=== PATIENT | male | born 1950 | race Hispanic/Latino ===

== ENCOUNTER 2017-10-02 09:50 | Emergency (ER) | payer OTHER ==
--- NOTE | 2017-10-02 10:01 | ER ---
Nurse's Notes [facility] Name: Santiago Odonnell Age: 67 yrs Sex: Male : 1950 Arrival Date: 10/02/2017 Time: 09:56 Bed Waiting Private MD: Diagnosis: Presentation: 10/02 09:59 Presenting complaint: pt thought this was a free clinic, refuses to be seen by iw provider, does not want to have an ER bill. ED Course: :56 Patient arrived in ED. mr Administered Medications: No medications were administered Outcome: 10:00 Patient left the ED. iw Signatures: Chelsi Christiansen Irene, RN RN iw
== END 2017-10-02 10:00 | disposition left against medical advice (07) ==
LOC: ER 09:50
DX: Z53.21 Procedure and treatment not carried out due to patient leaving prior to being seen by health care provider
CPT/HCPCS: 99281

== ENCOUNTER 2018-06-09 03:13 | Emergency (ER) | payer OTHER ==
[2018-06-09] MEDS ORDERED: LIDOCAINE JELLY 2%- 5 ML TUBE ONE (03:45)
[2018-06-09] MEDS ORDERED: LIDOCAINE VISCOUS 2% SOLN 15 ML UDC ONE (03:47)
--- NOTE | 2018-06-09 04:59 | ER ---
Nurse's Notes [facility] Name: Santiago Odonnell Age: 67 yrs Sex: Male : 1950 Arrival Date: 06/09/2018 Time: 03:17 Bed 5 Private MD: Diagnosis: Retention of urine, unspecified Presentation: 06/09 03:28 Presenting complaint: Patient states: he has not urinated since 1400 today. pt was in [address] for [place] 06/01/18 with heart stint placed. Transition of care: patient was not received from another setting of care. Onset of symptoms was June 09, 2018. Risk Assessment: Do you want to hurt yourself or someone else? Patient reports no desire to harm self or others. Initial Sepsis Screen: Does the patient meet any 2 criteria? No. Patient's initial sepsis screen is negative. Does the patient have a suspected source of infection? No. Patient's initial sepsis screen is negative. Care prior to arrival: None. 03:28 Method Of Arrival: Ambulatory [facility] 03:28 Acuity: WALTER 3 [facility] Triage Assessment: 03:31 General: Appears in no apparent distress. Behavior is calm, cooperative. Pain: [facility] Complains of pain in pelvis. EENT: No signs and/or symptoms were reported regarding the EENT system. Neuro: No deficits noted. Cardiovascular: No deficits noted. Respiratory: No deficits noted. GI: No signs and/or symptoms were reported involving the gastrointestinal system. : No signs and/or symptoms were reported regarding the genitourinary system. Derm: No signs and/or symptoms reported regarding the dermatologic system. Musculoskeletal: No signs and/or symptoms reported regarding the musculoskeletal system. Historical: - Allergies: 03:31 No Known Allergies; ak1 - Home Meds: 03:31 None [Active]; ak1 - PMHx: 03:31 [place]; ak1 - PSHx: 03:31 Heart stents; ak1 - Immunization history:: Adult Immunizations unknown. - Social history:: Smoking status: Patient/guardian denies using tobacco. - Ebola Screening: : No symptoms or risks identified at this time. - Family history:: not pertinent. - Hospitalizations: : No recent hospitalization is reported. Screenin:33 Abuse screen: Denies threats or abuse. Denies injuries from another. Nutritional ak1 screening: No deficits noted. Tuberculosis screening: No symptoms or risk factors identified. Fall Risk None identified. Assessment: 03:45 Reassessment: bladder scan done 371ml. rr5 03:50 General: Appears in no apparent distress. distressed, Behavior is calm, cooperative, rr5 appropriate for age. Pain: Complains of pain in pelvis Pain does not radiate. Pain currently is 5 out of 10 on a pain scale. Quality of pain is described as aching, Pain began gradually, Is intermittent. 03:50 Neuro: Level of Consciousness is awake, alert, obeys commands, Oriented to person, rr5 place, time, situation. Cardiovascular: Capillary refill < 3 seconds Patient's skin is warm and dry. Respiratory: Airway is patent Respiratory effort is even, unlabored, Respiratory pattern is regular, symmetrical. GI: Abdomen is round. : Reports cramping, incontinence, inability to void, pain in suprapubic area. EENT: No signs and/or symptoms were reported regarding the EENT system. Derm: Skin is intact, Skin is dry, Skin is pink, warm \T\ dry. Bruising that is dark purple, on right inner thigh. Musculoskeletal: No signs and/or symptoms reported regarding the musculoskeletal system. 03:52 Reassessment: meraz catheter insertion done aseptically with urine return. blood tinged rr5 noted then went yellow clear. 04:38 Reassessment: Patient appears in no apparent distress at this time. Patient and/or rr5 family updated on plan of care and expected duration. Pain level reassessed. no complaints made Patient states feeling better. Patient states symptoms have improved. 05:23 Reassessment: Patient appears in no apparent distress at this time. ED physician rr5 instructed to go home with meraz catheter in place discharge instruction, follow up to dr. hernández and meraz catheter care taught the patient. Patient states feeling better. Patient states symptoms have improved. Vital Signs: 03:31 BP 135 / 76; Pulse 89; Resp 18; Temp 98.8(O); Pulse Ox 100% on R/A; Weight 68.04 kg ak1 (R); Height 5 ft. 3 in. (160.02 cm); Pain 3/10; 04:33 BP 120 / 77; Pulse 89; Resp 17; Pulse Ox 98% on R/A; rr5 05:15 BP 113 / 70; Pulse 85; Resp 17; Pulse Ox 98% on R/A; rr5 03:31 Body Mass Index 26.57 (68.04 kg, 160.02 cm) ak1 ED Course: 03:17 Patient arrived in ED. es 03:24 Angel Colin MD is Attending Physician. rn 03:28 Milena Cedeño, RN is Primary Nurse. ak1 03:30 Triage completed. ak1 03:31 Arm band placed on Patient placed in an exam room, on a stretcher, Patient notified of ak1 wait time. 03:33 Patient has correct armband on for positive identification. Bed in low position. Call ak1 light in reach. Side rails up X 1. Pulse ox on. NIBP on. 03:52 Meraz cath inserted, using sterile technique, 16 Fr., by ia, balloon inflated, to rr5 gravity drainage, returned clear yellow urine. Patient tolerated well. 04:58 Gaurav Hernández MD is Referral Physician. rn 05:15 No provider procedures requiring assistance completed. IV discontinued. rr5 Administered Medications: No medications were administered Output: 05:15 Urine: 300ml (Meraz); Total: 300ml. rr5 Outcome: 04:58 Discharge ordered by . rn 05:15 Discharged to home ambulatory, with family. rr5 05:15 Condition: stable 05:15 Discharge instructions given to patient, family, Instructed on discharge instructions, follow up and referral plans. medication usage, Demonstrated understanding of instructions, follow-up care, medications. 05:28 Patient left the ED. rr5 Signatures: Tina Paniagua Roman, MD MD rn Krenek, Amber, RN RN ak1 Froilan Guzman RN RN rr5
--- NOTE | 2018-06-09 05:00 | EDPHYS ---
Physician Documentation [facility] Name: Santiago Odonnell Age: 67 yrs Sex: Male : 1950 Arrival Date: 06/09/2018 Time: 03:17 Bed 5 Private MD: ED Physician Angel Colin HPI: 06/09 04:52 This 67 yrs old Male presents to ER via Ambulatory with complaints of Urinary rn Retention. 04:52 The patient presents with urinary symptoms, retention. Onset: The symptoms/episode rn began/occurred today. Modifying factors: The symptoms are alleviated by nothing, the symptoms are aggravated by nothing. Severity of symptoms: At their worst the symptoms were mild, in the emergency department the symptoms are unchanged. The patient has not experienced similar symptoms in the past. Reports just discharged yesterday from hospital in [place], had heart attack, had meraz catheter placed, reports was traumatic and had some blood and trouble peeing then, but was able to urinate yesterday so meraz pulled out, traveled today, and reports unable to urinate for hours. No chest pain/sob/vomiting/diarrhea. No known prostate problems. . Historical: - Allergies: 03:31 No Known Allergies; ak1 - Home Meds: 03:31 None [Active]; ak1 - PMHx: 03:31 [place]; ak1 - PSHx: 03:31 Heart stents; ak1 - Immunization history:: Adult Immunizations unknown. - Social history:: Smoking status: Patient/guardian denies using tobacco. - Ebola Screening: : No symptoms or risks identified at this time. - Family history:: not pertinent. - Hospitalizations: : No recent hospitalization is reported. ROS: 04:52 Constitutional: Negative for fever, chills, and weight loss, Eyes: Negative for injury, rn pain, redness, and discharge, Neck: Negative for injury, pain, and swelling, Cardiovascular: Negative for chest pain, palpitations, and edema, Respiratory: Negative for shortness of breath, cough, wheezing, and pleuritic chest pain, Abdomen/GI: + lower abd pain : Negative for injury, bleeding, discharge, and swelling, MS/Extremity: Negative for injury and deformity, Skin: Negative for injury, rash, and discoloration, Neuro: Negative for headache, weakness, numbness, tingling, and seizure. Exam: 04:52 Constitutional: This is a well developed, well nourished patient who is awake, alert, rn and in no acute distress. Head/Face: Normocephalic, atraumatic. Eyes: Pupils equal round and reactive to light, extra-ocular motions intact. ENT: MMM Neck: Trachea midline, no thyromegaly or masses palpated, and no cervical lymphadenopathy. Supple, full range of motion without nuchal rigidity, or vertebral point tenderness. No Meningismus. Abdomen/GI: soft, non-tender MS/ Extremity: Pulses equal, no cyanosis. Neurovascular intact. Full, normal range of motion. Equal circumference. Neuro: Awake and alert, GCS 15, oriented to person, place, time, and situation. Cranial nerves II-XII grossly intact. Motor strength 5/5 in all extremities. Sensory grossly intact. Cerebellar exam normal. Normal gait. Vital Signs: 03:31 BP 135 / 76; Pulse 89; Resp 18; Temp 98.8(O); Pulse Ox 100% on R/A; Weight 68.04 kg ak1 (R); Height 5 ft. 3 in. (160.02 cm); Pain 3/10; 04:33 BP 120 / 77; Pulse 89; Resp 17; Pulse Ox 98% on R/A; rr5 05:15 BP 113 / 70; Pulse 85; Resp 17; Pulse Ox 98% on R/A; rr5 03:31 Body Mass Index 26.57 (68.04 kg, 160.02 cm) ak1 MDM: 03:24 Patient medically screened. rn 04:52 Differential diagnosis: urinary retention. Data reviewed: vital signs, nurses notes, rn and as a result, I will discharge patient. Counseling: I had a detailed discussion with the patient and/or guardian regarding: the historical points, exam findings, and any diagnostic results supporting the discharge/admit diagnosis, the need for outpatient follow up, to return to the emergency department if symptoms worsen or persist or if there are any questions or concerns that arise at home. Special discussion: I discussed with the patient/guardian in detail that at this point there is no indication for admission to the hospital. It is understood, however, that if the symptoms persist or worsen the patient needs to return immediately for re-evaluation. Based on the history and exam findings, there is no indication for further emergent testing or inpatient evaluation. I discussed with the patient/guardian the need to see the urologist for further evaluation of the symptoms. 04:59 ED course: MOst likely stricture from recent catheterization. . rn 06/09 03:40 Order name: Bladder Scanner; Complete Time: 03:52 rn 06/09 03:40 Order name: Meraz; Complete Time: 03:52 rn Administered Medications: No medications were administered Disposition: 06/09/18 04:58 Discharged to Home. Impression: Retention of urine, unspecified. - Condition is Stable. - Discharge Instructions: Meraz Catheter Care, Adult, Acute Urinary Retention, Male. - Medication Reconciliation Form, Thank You Letter, Antibiotic Education, Prescription Opioid Use form. - Follow up: Gaurav Hernández MD; When: 5 - 6 days; Reason: Recheck today's complaints, Re-evaluation by your physician. - Problem is new. - Symptoms have improved. Signatures: Angel Colin MD MD rn Krenek, Amber RN RN ak1 Froilan Guzman RN RN rr5 Corrections: (The following items were deleted from the chart) 05:28 04:58 06/09/2018 04:58 Discharged to Home. Impression: Retention of urine, unspecified. rr5 Condition is Stable. Forms are Medication Reconciliation Form, Thank You Letter, Antibiotic Education, Prescription Opioid Use. Follow up: Gaurav Hernández; When: 5 - 6 days; Reason: Recheck today's complaints, Re-evaluation by your physician. Problem is new. Symptoms have improved. rn
[2018-06-09 05:33] VITALS: TEMP 98.8
[2018-06-09 05:34] VITALS: O2SAT 98
[2018-06-09 05:36] VITALS: BP 113/70
== END 2018-06-09 05:28 | disposition home or self-care (01) ==
LOC: ER 03:13
DX: R33.9 Retention of urine, unspecified (principal); I25.2 Old myocardial infarction; Z95.5 Presence of coronary angioplasty implant and graft
CPT/HCPCS: 51702; 99284

== ENCOUNTER 2019-08-01 09:34 | Emergency (ER) | payer OTHER ==
[2019-08-01 10:03] LABS: Absolute Lymphocytes (CBC) 2.5 K/uL (0.7-4.9); Basophils % 0.8 % (0-1.3); Hematocrit 42.5 % (39.6-49.0); Lymphocytes % 31.8 % (15.3-44.8); MPV 8.3 fL (7.6-11.3); RBC Red Blood Cell Count 4.51 M/uL (4.33-5.43)
[2019-08-01 10:08] LABS: Protime INR 0.98
[2019-08-01 10:35] LABS: ALT/SGPT 44 U/L (12-78); AST/SGOT 25 U/L (15-37); Albumin 3.6 g/dL (3.4-5.0); Alkaline Phosphatase 58 U/L (45-117); BUN Blood Urea Nitrogen 15 mg/dL (7-18); Bicarbonate 26 mmol/L (21-32); Bilirubin Direct 0.1 mg/dL (0-0.2); Bilirubin Total 0.3 mg/dL (0.2-1.0); Glucose Level 89 mg/dL (74-106); Magnesium 2.3 mg/dL (1.8-2.4); NT PRO-BNP 488 pg/mL (<125); Potassium 3.8 mmol/L (3.5-5.1); Protein, Total 7.3 g/dL (6.4-8.2); Sodium Level 140 mmol/L (136-145); Troponin (Emerg Dept Use Only) < 0.02 ng/mL (0.0-0.045)
--- NOTE | 2019-08-01 10:49 | RAD REPORT ---
EXAM DESCRIPTION: RAD - Chest Single View - 08/01/2019 10:39 am CLINICAL HISTORY: Chest pain;Palpitations Chest pain. COMPARISON: CHEST SINGLE VIEW dated 02/18/2015 FINDINGS: Portable technique limits examination quality. The lungs are grossly clear. The heart is normal in size. No displaced fractures. IMPRESSION: No acute intrathoracic process suspected.
--- NOTE | 2019-08-01 13:10 | EDPHYS ---
Physician Documentation [facility] Name: Santiago Odonnell Age: 69 yrs Sex: Male : 1950 Arrival Date: 08/01/2019 Time: 09:34 Bed 4 Private MD: Omar Jain ED Physician Jass Haynes HPI: 08/01 10:37 This 69 yrs old Male presents to ER via Ambulatory with complaints of Chest kdr Pain, Palpitations. 10:37 The patient or guardian reports chest pain that is located primarily in the anterior kdr chest wall, left. Onset: yesterday. The pain does not radiate. Associated signs and symptoms: The patient has no apparent associated signs or symptoms. The chest pain is described as sharp, pulsing. Duration: The patient or guardian reports multiple episodes, that are intermittent, that wax and wane, with no pattern. Modifying factors: The symptoms are alleviated by nothing. the symptoms are aggravated by nothing. Severity of pain: At its worst the pain was. The patient has experienced similar episodes in the past, a few times, The patient had a heart cath in [place] last year - he does not know the results. Historical: - Allergies: 09:44 No Known Drug Allergies; hb - PMHx: 09:44 [place]; hb - PSHx: 09:44 Heart stents; hb - Immunization history:: Adult Immunizations up to date. - Social history:: Smoking status: Patient denies any tobacco usage or history of. - Ebola Screening: : No symptoms or risks identified at this time. ROS: 10:37 Constitutional: Negative for fever, chills, and weight loss, Eyes: Negative for injury, kdr pain, redness, and discharge, ENT: Negative for injury, pain, and discharge, Neck: Negative for injury, pain, and swelling, Respiratory: Negative for shortness of breath, cough, wheezing, and pleuritic chest pain, Abdomen/GI: Negative for abdominal pain, nausea, vomiting, diarrhea, and constipation, Back: Negative for injury and pain, : Negative for injury, bleeding, discharge, and swelling, MS/Extremity: Negative for injury and deformity, Skin: Negative for injury, rash, and discoloration, Neuro: Negative for headache, weakness, numbness, tingling, and seizure activity. Psych: Negative for depression, anxiety, suicide ideation, homicidal ideation, and hallucinations, Allergy/Immunology: Negative for hives, rash, and allergies, Endocrine: Negative for neck swelling, polydipsia, polyuria, polyphagia, and marked weight changes, Hematologic/Lymphatic: Negative for swollen nodes, abnormal bleeding, and unusual bruising. 10:37 Cardiovascular: Positive for chest pain, of the anterior aspect of left upper chest, kdr Negative for edema, orthopnea, palpitations, paroxysmal nocturnal dyspnea. Exam: 10:37 Constitutional: This is a well developed, well nourished patient who is awake, alert, kdr and in no acute distress. Head/Face: Normocephalic, atraumatic. Eyes: Pupils equal round and reactive to light, extra-ocular motions intact. Lids and lashes normal. Conjunctiva and sclera are non-icteric and not injected. Cornea within normal limits. Periorbital areas with no swelling, redness, or edema. Neck: Trachea midline, no thyromegaly or masses palpated, and no cervical lymphadenopathy. Supple, full range of motion without nuchal rigidity, or vertebral point tenderness. No Meningismus. Chest/axilla: Normal chest wall appearance and motion. Nontender with no deformity. No lesions are appreciated. Cardiovascular: Regular rate and rhythm with a normal S1 and S2. No gallops, murmurs, or rubs. Normal PMI, no JVD. No pulse deficits. Respiratory: Lungs have equal breath sounds bilaterally, clear to auscultation and percussion. No rales, rhonchi or wheezes noted. No increased work of breathing, no retractions or nasal flaring. Abdomen/GI: Soft, non-tender, with normal bowel sounds. No distension or tympany. No guarding or rebound. No evidence of tenderness throughout. Back: No spinal tenderness. No costovertebral tenderness. Full range of motion. Skin: Warm, dry with normal turgor. Normal color with no rashes, no lesions, and no evidence of cellulitis. MS/ Extremity: Pulses equal, no cyanosis. Neurovascular intact. Full, normal range of motion. Neuro: Awake and alert, GCS 15, oriented to person, place, time, and situation. Cranial nerves II-XII grossly intact. Motor strength 5/5 in all extremities. Sensory grossly intact. Cerebellar exam normal. Normal gait. Psych: Awake, alert, with orientation to person, place and time. Behavior, mood, and affect are within normal limits. 10:49 ECG was reviewed by the Attending Physician. kdr Vital Signs: 09:44 BP 138 / 73; Pulse 83; Resp 17; Temp 98.3; Pulse Ox 100% on R/A; Weight 65.77 kg; hb Height 5 ft. 6 in. (167.64 cm); Pain 5/10; 10:43 BP 114 / 64; Pulse 56; Resp 13; Pulse Ox 100% ; bp 11:58 BP 123 / 62; Pulse 61; Resp 17; Pulse Ox 100% ; bp 09:44 Body Mass Index 23.40 (65.77 kg, 167.64 cm) hb MDM: 13:09 Patient medically screened. kdr 14:30 Data reviewed: vital signs, nurses notes, radiologic studies. kdr 08/01 09:42 Order name: Basic Metabolic Panel; Complete Time: 11:03 [facility] 08/01 09:42 Order name: CBC with Diff; Complete Time: 10:33 kdr 08/01 09:42 Order name: LFT's; Complete Time: 11:03 [facility] 08/01 09:42 Order name: Magnesium; Complete Time: 11:03 kdr 08/01 09:42 Order name: NT PRO-BNP; Complete Time: 11:03 [facility] 08/01 09:42 Order name: PT-INR; Complete Time: 10:33 kdr 08/01 09:42 Order name: Troponin (emerg Dept Use Only); Complete Time: 11:03 [facility] 08/01 09:42 Order name: XRAY Chest (1 view); Complete Time: 11:03 [facility] 08/01 09:42 Order name: EKG; Complete Time: 09:44 kdr 08/01 09:42 Order name: Cardiac monitoring; Complete Time: 09:44 kdr 08/01 09:42 Order name: EKG - Nurse/Tech; Complete Time: 09:53 kdr 08/01 09:42 Order name: IV Saline Lock; Complete Time: :53 [facility] 08/01 11:05 Order name: Troponin (emerg Dept Use Only): Draw 2 hours after initial draw; Complete kdr Time: 13:08/01 09:42 Order name: Labs collected and sent; Complete Time: 09:54 kdr 08/01 09:42 Order name: O2 Per Protocol; Complete Time: 09:44 kdr 08/01 09:42 Order name: O2 Sat Monitoring; Complete Time: kdr EC:49 Rate is 60 beats/min. Rhythm is regular, Normal Sinus Rhythm with No ectopy. QRS [place] kdr is Normal. [place] interval is normal. Clinical impression: Normal ECG and NSR w/ Non-specific ST/T Changes. Administered Medications: No medications were administered Disposition: 08/01/19 13:09 Discharged to Home. Impression: Chest pain, unspecified. - Condition is Stable. - Discharge Instructions: Nonspecific Chest Pain, [id number]. - Medication Reconciliation Form, Thank You Letter form. - Follow up: Omar Jain MD; When: 2 - 3 days; Reason: If symptoms return, Further diagnostic work-up, Recheck today's complaints, Continuance of care, Re-evaluation by your physician. - Problem is an acute exacerbation. - Symptoms are resolved. Signatures: Dispatcher [employer] [facility] Jass Haynes MD MD kdr Berta Cottrell RN RN hb Corrections: (The following items were deleted from the chart) 10:02 09:59 Transvaginal Ob+US.RAD.BRZ ordered. [facility] 13:20 13:09 08/01/2019 13:09 Discharged to Home. Impression: Chest pain, unspecified. hb Condition is Stable. Forms are Medication Reconciliation Form, Thank You Letter, Antibiotic Education, Prescription Opioid Use. Follow up: Omar Jain; When: 2 - 3 days; Reason: If symptoms return, Further diagnostic work-up, Recheck today's complaints, Continuance of care, Re-evaluation by your physician. Problem is an acute exacerbation. Symptoms are resolved. kdr
--- NOTE | 2019-08-01 13:10 | ER ---
Nurse's Notes [facility] Name: Santiago Odonnell Age: 69 yrs Sex: Male : 1950 Arrival Date: 08/01/2019 Time: 09:34 Bed 4 Private MD: Omar Jain Diagnosis: Chest pain, unspecified Presentation: 08/01 09:42 Presenting complaint: Intermittent left sided chest pain x 2 days. Transition of care: hb patient was not received from another setting of care. Onset of symptoms was July 31, 2019. Risk Assessment: Do you want to hurt yourself or someone else? Patient reports no desire to harm self or others. Initial Sepsis Screen: Does the patient meet any 2 criteria? No. Patient's initial sepsis screen is negative. Does the patient have a suspected source of infection? No. Patient's initial sepsis screen is negative. Care prior to arrival: None. 09:42 Method Of Arrival: Ambulatory hb 09:42 Acuity: WALTER 3 hb Triage Assessment: 09:45 General: Appears in no apparent distress. comfortable, Behavior is cooperative, bp appropriate for age, anxious. Pain: Complains of pain in chest. EENT: No deficits noted. Neuro: No deficits noted. Cardiovascular: Rhythm is sinus rhythm. Respiratory: No deficits noted. GI: No signs and/or symptoms were reported involving the gastrointestinal system. : No signs and/or symptoms were reported regarding the genitourinary system. Derm: No deficits noted. Musculoskeletal: No deficits noted. Historical: - Allergies: 09:44 No Known Drug Allergies; hb - PMHx: 09:44 [place]; hb - PSHx: 09:44 Heart stents; hb - Immunization history:: Adult Immunizations up to date. - Social history:: Smoking status: Patient denies any tobacco usage or history of. - Ebola Screening: : No symptoms or risks identified at this time. Screenin:44 Abuse screen: Denies threats or abuse. Denies injuries from another. Nutritional hb screening: No deficits noted. Tuberculosis screening: No symptoms or risk factors identified. Fall Risk None identified. Assessment: 09:45 General: SEE TRIAGE NOTE. Pain: Pain does not radiate. Pain began 1 day ago. bp 10:42 Reassessment: ALL CURRENT ORDERS COMPLETED. NO ACUTE S/S AT THIS TIME. SR ON MONITOR. bp 11:58 Reassessment: REPEAT CARDIAC ENZYMES DRAWN AND SENT. VS STABLE, NO ACUTE S/S AT THIS bp TIME. Vital Signs: 09:44 BP 138 / 73; Pulse 83; Resp 17; Temp 98.3; Pulse Ox 100% on R/A; Weight 65.77 kg; hb Height 5 ft. 6 in. (167.64 cm); Pain 5/10; 10:43 BP 114 / 64; Pulse 56; Resp 13; Pulse Ox 100% ; bp 11:58 BP 123 / 62; Pulse 61; Resp 17; Pulse Ox 100% ; bp 09:44 Body Mass Index 23.40 (65.77 kg, 167.64 cm) hb ED Course: 09:34 Patient arrived in ED. as 09:34 Omar Jain MD is Private Physician. as 09:41 Jass Haynes MD is Attending Physician. kdr 09:43 Triage completed. hb 09:44 Arm band placed on. hb 09:53 EKG done, by ED staff, reviewed by Jass Haynes MD. jb1 09:54 Inserted saline lock: 20 gauge in right antecubital area, using aseptic technique. hb Blood collected. Patient maintains SpO2 saturation greater than 95% on room air. 10:10 Juan Antonio Penn, CAMERON is Primary Nurse. bp 10:39 XRAY Chest (1 view) In Process Unspecified. EDMS 10:43 Patient has correct armband on for positive identification. Bed in low position. Call bp light in reach. Side rails up X2. Adult w/ patient. jewel flat surfacer on. Pulse ox on. NIBP on. 13:09 Omar Jain MD is Referral Physician. kdr 13:18 No provider procedures requiring assistance completed. IV discontinued, intact, hb bleeding controlled, No redness/swelling at site. Pressure dressing applied. Administered Medications: No medications were administered Outcome: 13:09 Discharge ordered by . kdr 13:18 Discharged to home ambulatory. hb 13:18 Condition: stable 13:18 Discharge instructions given to patient, Instructed on discharge instructions, follow up and referral plans. medication usage, Demonstrated understanding of instructions, follow-up care, medications. 13:20 Patient left the ED. hb Signatures: Dispatcher [employer] EDMS Jared Henderson jb1 Jass Haynes MD MD kdr Tonya Russo as Berta Cottrell RN RN hb Juan Antonio Penn, RN RN bp
[2019-08-01 13:34] VITALS: TEMP 98.3; O2SAT 100
[2019-08-01 13:37] VITALS: BP 123/62
--- NOTE | 2019-08-01 14:31 | EKG ---
Test Date: 2019-08-01 Test Time: 09:52:52 Education Site Manager: ALEJANDRA MEASUREMENT RESULTS: Intervals: Rate: 60 NV: 164 QRSD: 94 QT: 418 QTc: 418 [place]: P: 38 NV: 164 QRS: -19 T: -32 INTERPRETIVE STATEMENTS: Normal sinus rhythm Inferior infarct, age undetermined Abnormal ECG Compared to ECG 02/19/2015 06:54:14 Sinus bradycardia no longer present Myocardial infarct finding still present Electronically Signed On 08-01-19 14:30:15 FITTER'S ASSISTANT by Lev Cornell
== END 2019-08-01 13:20 | disposition home or self-care (01) ==
LOC: ER 09:34
DX: R07.9 Chest pain, unspecified (principal); Z95.5 Presence of coronary angioplasty implant and graft
CPT/HCPCS: 36415; 71045; 80048; 80076; 83735; 83880; 84484; 85025; 85610; 93005; 99285

== ENCOUNTER 2020-06-24 10:13 | Day surgery (SDC) | payer MEDICARE ==
--- NOTE | 2020-06-23 14:18 | RAD REPORT ---
EXAM DESCRIPTION: Nestor Mayer And Radha (2 Views)06/23/2020 2:13 pm CLINICAL HISTORY: Preop for cardiac catheterization COMPARISON: 2014 FINDINGS: The lungs appear clear of acute infiltrate. The heart is normal size IMPRESSION: No acute abnormalities displayed
[2020-06-23 14:46] LABS: Protime INR 0.97
[2020-06-23 14:56] LABS: Absolute Lymphocytes (CBC) 2.2 K/uL (0.7-4.9); Basophils % 0.8 % (0-1.3); Hematocrit 44.2 % (39.6-49.0); Lymphocytes % 29.8 % (15.3-44.8); MPV 8.5 fL (7.6-11.3); RBC Red Blood Cell Count 4.72 M/uL (4.33-5.43)
[2020-06-24] MEDS ORDERED: NA CHLORIDE 0.9% 500 ML ONE ×2 (10:44→11:23)
[2020-06-24] MEDS ORDERED: HEPA 1000U/500MLS 1,000 UNIT/500 ML BAG IV ONE (11:34)
[2020-06-24] MEDS ORDERED: MIDAZOLAM HCL 2 MG/2 ML INJ ONE ×2 (11:34→11:50)
[2020-06-24] MEDS ORDERED: ATROPINE SULF 1 MG/10 ML SYR IV ONE (11:35)
[2020-06-24] MEDS ORDERED: FENTANYL CITR 100 MCG/2 ML ONE (11:35)
[2020-06-24] MEDS ORDERED: NA CHLORIDE 0.9% 50 ML ONE (11:35)
[2020-06-24] MEDS ORDERED: NITROGLYCERIN 100 MCG/ML SYR (for cath lab use only) IV ONE (12:03)
[2020-06-24] MEDS ORDERED: NITROGLYCERIN/D5W 25 MG/250 ML BTL IV ONE (12:03)
[2020-06-24] MEDS ORDERED: LIDOCAINE 1% 20 ML MDV ONE (12:03)
[2020-06-24] MEDS ORDERED: ASPIRIN 325 MG TAB ONE (12:10)
[2020-06-24] MEDS ORDERED: PRASUGREL (EFFIENT) 10 MG TAB ONE (12:11)
[2020-06-24] MEDS ORDERED: MORPHINE 4 MG/ML SYR IV PRN (14:15)
[2020-06-24] MEDS ORDERED: NITROGLYCERIN 0.4 MG/TAB SL PRN (15:00)
[2020-06-24] MEDS ORDERED: NA CHLORIDE 0.9% 1,000 ML IV SCH (15:00)
[2020-06-24] MEDS ORDERED: ACETAMINOPHEN 325 MG TABLET PO PRN (15:00)
[2020-06-24 15:20] VITALS: BMI 26.5
[2020-06-24] MEDS ORDERED: PNEUMOCOCCAL VACCINE 0.5 ML IMVAC ONE (18:00)
[2020-06-24] MEDS ORDERED: INFLUENZA VACCINE (for 3y+) 0.5 ML DOSE IMVAC ONE (18:00)
[2020-06-24 18:45] VITALS: O2SAT 98
[2020-06-25 05:47] VITALS: BP 116/55; TEMP 97.3
[2020-06-25] MEDS ORDERED: ASPIRIN 81 MG CHEWABLE TABLET PO SCH (09:00)
[2020-06-25] MEDS ORDERED: CLOPIDOGREL 75 MG TABLET PO SCH (09:00)
--- NOTE | 2020-06-26 02:56 | DS ---
Date of Discharge: 06/25/2020 Mr. Odonnell was admitted as an outpatient on 06/24/2020, following a primary stent of his RCA. Reason for admission was multiple coronary artery disease and some chest discomfort. He had also LAD stenos is, OM stenosis and diagonal stenosis. He is to be brought back on 06/29/2020, for staged interventi on. I felt uncomfortable sending him home after his RCA stent considering he has severe coronary art sal disease elsewhere. The patient tolerated the procedure well overnight. He has no complications. No chest pain. Telemetry was normal. Right groin site was intact without any hematoma. He has go od distal pulses. He will be discharged today with aspirin, statin, beta-blockers, and Plavix and he will come back on the June 29 for interventions of his other vessels. ARLENE/SAVITA Voice ID: [id number] Report ID: [id number]
--- NOTE | 2020-06-26 03:17 | OP ---
Surgeon: Uli Solis MD Superintendent Commissary: Torsten Sloan. Mr. Odonnell was brought to the geophysical laboratory chief as an outpatient on 06/24/2020. He was brought in for left hea rt catheterization. Indication: Unstable angina. Description Of Procedure: The patient was prepped and draped in the routine sterile fashion. Given Versed for sedation. Using the Seldinger technique, 10 cc xylocaine was injected in the right common femoral artery area. A 6-Ecuadorean sheath was introduced successfully. Angiography there was normal. StarClose was used to close the entry site. Catheterization was done using the JL4 and JR4 respecti vely for the left main and right main. He was found to have a 90% stenosis in the proximal RCA. He was found to have an 80% mid LAD and 90% first diagonal, 80% proximal circumflex. We decided to stag e Mr. Collado interventions. On 06/24/2020, I decided to stent his RCA. We used a JR4 guide 6-Ecuadorean with side hole to cannulate the right main. A Carmichael wire 0.014 was used to cross the lesion succes sfully. A 3.0 x 16 Synergy stent was placed in the lesion with excellent results after inflating to 11 atmospheres with 0% residuals. There were no complications. Blood loss was 5 mL. The patient to lerated the procedure well. He received aspirin, Effient, and Angiomax during the procedure. Anesthesia: Total conscious sedation was 60 minutes. Final Diagnoses: Severe coronary artery disease status post successful primary stent of the right co ronary artery. The patient will remain in the hospital overnight because of some chest pain and severe coronary lynette ry disease in other areas. He would be admitted for observation and sent home the day after. We will plan to have him come back on 06/29/2020, for stenting of the LAD diagonal and circumflex. NB/MODL Voice ID: [id number] Report ID: [id number]
== END 2020-06-25 08:48 | disposition home health service (06) ==
LOC: CCL 10:13 → 2ND 13:43 → CCL 06-25 08:48
DX: I25.110 Atherosclerotic heart disease of native coronary artery with unstable angina pectoris (principal); I10 Essential (primary) hypertension; E78.2 Mixed hyperlipidemia; R20.2 Paresthesia of skin; N40.0 Benign prostatic hyperplasia without lower urinary tract symptoms; Z95.5 Presence of coronary angioplasty implant and graft; Z20.828 Contact with and (suspected) exposure to other viral communicable diseases
CPT/HCPCS: 85025; 80048; 36415; 85610; 85347 ×2; 85730; 71046; 93454; U0002; C1893; C1725; C9600; J2250; J3010; J0583; J7040 ×2; J1644

== ENCOUNTER 2020-06-29 06:24 | Day surgery (SDC) | payer MEDICARE ==
[2020-06-29] MEDS ORDERED: LIDOCAINE 1% MPF 30 ML VIAL ONE (06:51)
[2020-06-29] MEDS ORDERED: HEPA 1000U/500MLS 1,000 UNIT/500 ML BAG IV ONE ×2 (06:51→07:53)
[2020-06-29] MEDS ORDERED: NA CHLORIDE 0.9% 500 ML ONE ×2 (07:16→08:28)
[2020-06-29] MEDS ORDERED: MIDAZOLAM HCL 2 MG/2 ML INJ ONE ×2 (07:48→08:07)
[2020-06-29] MEDS ORDERED: ATROPINE SULF 1 MG/10 ML SYR IV ONE (07:49)
[2020-06-29] MEDS ORDERED: NITROGLYCERIN/D5W 25 MG/250 ML BTL IV ONE (07:49)
[2020-06-29] MEDS ORDERED: FENTANYL CITR 100 MCG/2 ML ONE ×2 (07:49→08:07)
[2020-06-29] MEDS ORDERED: NITROGLYCERIN 100 MCG/ML SYR (for cath lab use only) IV ONE (07:49)
[2020-06-29] MEDS ORDERED: NA CHLORIDE 0.9% 50 ML ONE (07:49)
[2020-06-29 08:50] VITALS: O2SAT 100
[2020-06-29] MEDS ORDERED: PRASUGREL (EFFIENT) 10 MG TAB ONE (09:16)
[2020-06-29 11:29] VITALS: BMI 26.5
[2020-06-29] MEDS ORDERED: MORPHINE 4 MG/ML SYR IV PRN (11:56)
[2020-06-29] MEDS ORDERED: DIAZEPAM 5 MG TABLET PO PRN (11:57)
[2020-06-29] MEDS ORDERED: ACETAMINOPHEN 325 MG TABLET PO PRN (12:00)
[2020-06-29] MEDS ORDERED: NITROGLYCERIN 0.4 MG/TAB SL PRN (12:00)
[2020-06-29] MEDS ORDERED: NA CHLORIDE 0.9% 1,000 ML IV SCH (12:00)
[2020-06-29] MEDS ORDERED: PNEUMOCOCCAL VACCINE 0.5 ML IMVAC ONE (14:00)
[2020-06-29] MEDS ORDERED: INFLUENZA VACCINE (for 3y+) 0.5 ML DOSE IMVAC ONE (14:00)
[2020-06-29] MEDS ORDERED: ATORVASTATIN 80 MG TAB PO SCH (21:00)
[2020-06-30 04:27] LABS: Absolute Lymphocytes (CBC) 2.2 K/uL (0.7-4.9); Basophils % 0.7 % (0-1.3); Hematocrit 36.7 % (39.6-49.0); Lymphocytes % 27.6 % (15.3-44.8); MPV 8.2 fL (7.6-11.3)
[2020-06-30 04:39] LABS: Potassium 3.9 mmol/L (3.5-5.1)
[2020-06-30] MEDS ORDERED: CLOPIDOGREL 75 MG TABLET PO SCH (09:00)
[2020-06-30] MEDS ORDERED: ASPIRIN 81 MG CHEWABLE TABLET PO SCH (09:00)
[2020-06-30 14:25] VITALS: BP 149/68; TEMP 98.8
--- NOTE | 2020-07-04 11:38 | DS ---
Date of Discharge: 06/30/2020 Admission Diagnosis: Coronary artery disease. Discharge Diagnosis: Coronary artery disease, status post primary stent of the circumflex and LAD. Discharge Instructions: We will plan to follow up in my office in 2 weeks. We will maintain a low-f at, low-cholesterol diet. Normal activities in 48 hours. Discharge Medications: Aspirin, Lipitor, Toprol, and Plavix. Patient will see me in the office in 2 weeks. Overnight, he had no problem. No complaint. Normal r hythm. Right groin site was intact. Distal pulses were good. ARLENE/SAVITA Voice ID: [id number] Report ID: [id number]
--- NOTE | 2020-07-04 12:29 | OP ---
Date of Procedure: 06/29/2020 Surgeon: Uli Solis MD Reclamation Kettle Tender: Taylor Perdomo. Procedures Performed: Selective coronary arteriogram, angioplasty and stent of the circumflex and LA D. History Of Present Illness: Mr. Odonnell is a 69-year-old Latin-Cam[place] male, who underwent an RCA luis manuel ema stent approximately a week ago, was brought today for a staged procedure for intervention on the LAD and the circumflex. Procedure In Detail: The patient was brought to the analytical lab analyst as an outpatient. He was prepped and d raped in the routine sterile fashion. He was given Versed for sedation. A 6-Czech sheath was intro duced in the right common femoral artery successfully. Angiography there later was normal and Angio- Seal was used to close the case. An XB LAD 3.5 with side hole was used as a guide catheter. A Couga r wire was used initially to cross the circumflex lesion successfully. A 2.5 x 16 stent was introduc ed in the proximal circumflex and dilated at 11 atmospheres for 30 seconds with 0% residual. Followi ng that, the wire was moved to the LAD. A 2.5 x 16 stent was placed in the mid LAD with 0% residual as well. The patient did have some spasm in the circumflex lesion that resolved with nitroglycerin i ntracoronary. The diagonal had about 70% to 80% stenosis with a small vessel and I decided not to in tervene with it unless he continues to have symptoms down the road. The patient tolerated the proced ure well and there were no complications. Blood loss was 5 mL. Total conscious sedation was 60 cyn stewart. The patient received Effient, Angiomax, and aspirin during the procedure. Final Diagnosis: Successful primary stent of the mid LAD and the proximal circumflex. The patient will remain in the hospital overnight only because of multivessel intervention and diagon al disease. He will go home in the morning on aspirin, Plavix, metoprolol, and statin and he will see me in the office in 2 weeks. ARLENE/SAVITA Voice ID: [id number] Report ID: [id number]
== END 2020-06-30 15:03 | disposition home or self-care (01) ==
LOC: CCL 06:24 → 2ND 11:12 → CCL 06-30 15:03
DX: I25.10 Atherosclerotic heart disease of native coronary artery without angina pectoris (principal); I10 Essential (primary) hypertension; E78.5 Hyperlipidemia, unspecified; E78.2 Mixed hyperlipidemia; R20.2 Paresthesia of skin; N40.0 Benign prostatic hyperplasia without lower urinary tract symptoms; Z95.5 Presence of coronary angioplasty implant and graft
CPT/HCPCS: 36415; 80048; 85025; 85347; 93005; C1725; C1760; C1877; C1893; C9600; C9601; J0583; J1644; J2250; J3010; J7040

== ENCOUNTER 2020-10-20 06:18 | Day surgery (SDC) | payer MEDICARE ==
[2020-10-19 11:51] LABS: Absolute Lymphocytes (CBC) 1.9 K/uL (0.7-4.9); Basophils % 0.9 % (0-1.3); Hematocrit 44.5 % (39.6-49.0); Lymphocytes % 30.3 % (15.3-44.8); MPV 8.1 fL (7.6-11.3); RBC Red Blood Cell Count 4.79 M/uL (4.33-5.43)
[2020-10-19 11:55] LABS: Protime INR 0.97
[2020-10-19 12:01] LABS: BUN Blood Urea Nitrogen 11 mg/dL (7-18); Bicarbonate 30 mmol/L (21-32); Glucose Level 110 mg/dL (74-106); Potassium 4.6 mmol/L (3.5-5.1); Sodium Level 141 mmol/L (136-145)
--- NOTE | 2020-10-19 16:33 | EKG ---
Test Date: 2020-10-19 Test Time: 10:11:23 Holter Scanning Technician: SCAR MEASUREMENT RESULTS: Intervals: Rate: 63 CT: 154 QRSD: 94 QT: 428 QTc: 437 [place]: P: 56 CT: 154 QRS: -13 T: -2 INTERPRETIVE STATEMENTS: Normal sinus rhythm Possible Lateral infarct, age undetermined Inferior infarct, age undetermined Abnormal ECG Compared to ECG 06/30/2020 08:13:30 No significant changes Electronically Signed On 10-19-20 16:32:42 CDT by Uli Solis
[2020-10-20] MEDS ORDERED: NA CHLORIDE 0.9% 500 ML ONE (07:13)
[2020-10-20] MEDS ORDERED: HEPA 1000U/500MLS 1,000 UNIT/500 ML BAG IV ONE (07:19)
[2020-10-20] MEDS ORDERED: LIDOCAINE 1% 20 ML MDV ONE (07:19)
[2020-10-20 07:30] VITALS: TEMP 97
[2020-10-20] MEDS ORDERED: MIDAZOLAM HCL 2 MG/2 ML INJ ONE ×2 (07:34→08:17)
[2020-10-20] MEDS ORDERED: FENTANYL CITR 100 MCG/2 ML ONE (07:35)
[2020-10-20] MEDS ORDERED: ATROPINE SULF 1 MG/10 ML SYR IV ONE (07:35)
[2020-10-20] MEDS ORDERED: ACETAMINOPHEN 325 MG TABLET ONE (09:58)
[2020-10-20 10:18] VITALS: BP 97/53; O2SAT 98
--- NOTE | 2020-10-21 14:29 | OP ---
Date of Procedure: 10/20/2020 Surgeon: Uli Solis MD Organizational Effectiveness Director: Jun Gipson. The patient has Angio-Seal to close the right groin. He will go home in 2 hours and I will make an a rrangement for followup later. Procedure: Selective bilateral carotid angiogram. Indication: CVD and abnormal carotid Doppler. History Of Present Illness: Mr. Odonnell is a 70-year-old Latin-Slovak male with history hypertension , diabetes, dyslipidemia, recent LAD stent in June. He takes Plavix and aspirin. He is on stati n. Admitted for abnormal carotid Doppler for angiogram. Procedure In Detail: He was brought to the electroplating laborer on 10/20/2020, prepped and draped in routine keith rile fashion. Given Versed for sedation and fentanyl. A 6-[place] Islander sheath was introduced in the right common femoral artery using the Seldinger technique and 10 mL of Xylocaine. A JR4 catheter was used to select the right common carotid and the left common carotid separately. He was found to have a 5 0% left ICA, but he had an 80% stenosis at the right carotid bulb, ostial RCA, ostial ECA. The patie nt tolerated the procedure well. Anesthesia: Total conscious sedation was 45 minutes. Blood Loss: 5 mL. Final Diagnosis: Severe cardiovascular disease. Plan: The patient needs a right carotid endarterectomy. I will send him to to stop t he Plavix before that because of his stent in June. ARLENE/SAVITA Voice ID: [id number] Report ID: [id number]
== END 2020-10-20 10:47 | disposition home or self-care (01) ==
LOC: CCL 06:18
DX: I65.23 Occlusion and stenosis of bilateral carotid arteries (principal); I25.10 Atherosclerotic heart disease of native coronary artery without angina pectoris; I10 Essential (primary) hypertension; E78.2 Mixed hyperlipidemia; E11.9 Type 2 diabetes mellitus without complications; N40.0 Benign prostatic hyperplasia without lower urinary tract symptoms; Z95.5 Presence of coronary angioplasty implant and graft; Z79.02 Long term (current) use of antithrombotics/antiplatelets; Z20.822 Contact with and (suspected) exposure to COVID-19
CPT/HCPCS: 93005; 85025; 80048; 36415; 85610; 85730; 36222; U0003; C1893; C1760; J2250; J3010; J7040; J1644

== ENCOUNTER 2023-04-15 20:49 | Observation (INO) | payer MEDICARE, OTHER ==
--- OUTSIDE RECORDS SUMMARY | 2023-04-15 20:53 | XMS REPORT | Continuity of Care Document ---
:1950 Author Organization [facility] t Address [address] [place] [address] [address] [place] [address] Care Team Providers Name Role Phone REYNALDO CASTRO Attending Clinician Unavailable Sherri-Mbayo_A_AH Attending Clinician Unavailable REYNALDO CASTRO Admitting Clinician Unavailable Sherri-Mbayo_A_AH Admitting Clinician Unavailable Payers Payer Name Policy Type Policy Number Effective Date Expiration Date S gwen AAR/MEDICARE [id number] 2020 COMPLETE 00:00:00 [facility] - [id number] 2935-03-01 [employer] 00:00:00 (MEDICARE REPLACEMENT/ADVANT AGE - HMO) Problems Condition Condition Condition Status Onset Resolution Last Treating Co mments Source Name Details Category Date Date Treatment Clinician Date Carotid Carotid Disease Active [facility], 6[facility] right right 00:00: Medical 00 Center Allergies, Adverse Reactions, Alerts Allergy Allergy Status Severity Reaction(s) Onset Inactive Treating Comm ents Source Name Type Date Date Clinician NO KNOWN Allergy Active [facility] Social History Social Habit Start Date Stop Date Quantity Comments Source History SDOH [facility] Alcohol Std Drinks Medica l Center History SDOH [facility] Alcohol Binge Medical [facility] Alcohol intake 2020-12-21 2020-12-[address] [facility] 00:00:00 00:00:00 non-drinker Medical Marly quintana (finding) Tobacco use and 2020-12-15 2020-12-[address] [facility] exposure 00:00[facility]00 00:00:00 non-user Medical Center History SDOH 2020-12-15 2020-12-[address] [facility] Alcohol Frequency 00:00:00 00:00:00 Medical Center Sex Assigned At [address] [facility] 00:00:00 00:00:00 Medical Center Smoking Status Start Date Stop Date Source Never smoked tobacco [facility] Medications Ordered Filled Start Stop Current Ordering Indication Dosage Frequency Signature Comments Components Source Medication Medication Date Date Medication? Clinician (SIG) Name Name clopidogreL Yes 75mg QD Take [address] [facility] [address] (PLAVIX) 75 6-28 by mouth Luke s mg tablet 10:56: daily. Medica l 49 Center atorvastati Yes 40mg QD Take [address] [address] n (LIPITOR) 6-28 by mouth Luke s 40 MG 10:56: nightly . Medical tablet 49 [place] metoprolol Yes 50mg QD Take [address] succinate 6-15 by mouth [facility]ukes (TOPROL-XL) 12:20: nightly . M edical 50 MG 24 hr 16 Center tablet tamsulosin Yes .4mg QD Take 0.[address] [facility] (FLOMAX) 6-15 mg by [facility]ukes 0.4 mg Cap 12:20: mouth Medica l 24 hr 16 nightly . Center capsule lisinopriL Yes 7.5mg QD Take 7.[address] (PRINIVIL,Z 6-15 mg by Lukes ESTRIL) 5 12:20: mouth Medical MG tablet 16 nightly . Cente r furosemide Yes 20mg Take [address] (LASIX) 20 5-03 by mouth Lukes MG tablet 00:00: daily as Medi katarina 00 needed. Center Vital Signs Vital Name Observation Time Observation Value Comments Source HEIGHT 2020-12-20 06:05:00 157.5 cm WEIGHT 2020-12-20 06:05:00 67.7 kg HEIGHT 2020-12-17 11:40:00 157.5 cm WEIGHT 2020-12-17 11:40:00 67.586 kg HEIGHT 2021-01-03 10:30:00 157.5 cm WEIGHT 2021-01-03 10:30:00 66.679 kg HEIGHT 2020-12-20 06:05:00 157.5 cm WEIGHT 2020-12-20 06:05:00 67.7 kg HEIGHT 2020-12-17 11:40:00 157.5 cm WEIGHT 2020-12-17 11:40:00 67.586 kg HEIGHT 2020-12-15 10:48:00 157.5 cm WEIGHT 2020-12-15 10:48:00 67.677 kg HEIGHT 2020-12-15 10:48:00 157.5 cm WEIGHT 2020-12-15 10:48:00 67.677 kg Procedures This patient has no known procedures. Plan of Care Planned Activity Planned Date Details Comments Source Future Scheduled 2023-03-09 Influenza Vaccine (#1) [facility] 00:00:00 [code = Influenza Medical Ce nter Vaccine (#1)] Future Scheduled 2022-07-[address] [facility] Test 00:00:00 (12+) [code = Medical Center DEPRESSION SCREENING (12+)] Future Scheduled 2022-07-09 FALLS RISK SCREENING [facility] Test 00:00:00 [code = FALLS RISK Medical C enter SCREENING] Future Scheduled 2021-12-[address] [facility] Test 00:00:00 Counseling and Medical Cente r Screening (12+) [code = Tobacco Cessation Counseling and Screening (12+)] Future Scheduled 2021-07-[address] [facility] Test 00:00:00 WELLNESS (YEAR 2 or Medical Center FIRST YEAR if no IPPE) [code = MEDICARE ANNUAL WELLNESS (YEAR 2 or FIRST YEAR if no IPPE)] Future Scheduled 2017 PNEUMOCOCCAL 65+ YRS ([address] [facility] Test 00:00:00 - PCV) [code = Medical Cente r PNEUMOCOCCAL 65+ YRS (1 - PCV)] Future Scheduled 2002 SHINGLES VACCINES ([address] [facility] Test 00:00:00 2) [code = SHINGLES Medical Center VACCINES (1 of 2)] Future Scheduled 1971 DTAP/TDAP/TD VACCINES [facility] 00:00:00 (1 - Tdap) [code = Medical C enter DTAP/TDAP/TD VACCINES (1 - Tdap)] Future Scheduled 1970 HEPATITIS C SCREENING [facility] 00:00:00 [code = HEPATITIS C Medical Center SCREENING] Future Scheduled 1951-01-03 COVID-19 VACCINE (#1) [facility] Test 00:00:00 [code = COVID-[address] VACCINE (#1)] Future Scheduled 1952 CT Colonography (combo) [facility] Test 00:00:00 [code = CT Colonography [facility] (combo)] Future Scheduled 1952 Screening for malignant [facility] Test 00:00:00 neoplasm of colon Medical Ce nter (procedure) [code = 792471484] Future Scheduled 1952 Screening for malignant [facility] Test 00:00:00 neoplasm of colon Medical Ce nter (procedure) [code = 085664332] Future Scheduled 1952 Screening for malignant [facility] Test 00:00:00 neoplasm of colon Medical Ce nter (procedure) [code = 476754515] Future Scheduled 1952 Screening for malignant [facility] Test 00:00:00 neoplasm of colon Medical Ce nter (procedure) [code = 597814530] Future Scheduled 1950 Sigmoidoscopy [code = [facility] Test 00:00:00 Sigmoidoscopy] Medical Cente r Encounters Start End Encounter Admission Attending Care Care Encounter Source Date/Time Date/Time Type Type Clinicians Facility Department ID 2021-04-17 Inpatient [facility] Surgery [id number] [facility] 00:34:02 REYNALDO 2021-01-03 2021-01-03 Outpatient [facility] [id number] [facility] 00:00:00 00:00:00 REYNALDO 2020-12-17 2020-12-17 Outpatient [facility] [id number] [facility] 00:00:00 00:00:00 2020-12-15 2020-12-15 Outpatient [facility] [id number] SLE 00:00:00 00:00:00 REYNALDO 2019-08-27 2019-08-27 Outpatient [facility] [id number] [facility] 07:25:00 07:25:00 _A_AH [id number] Family Practic e Results Test Description Test Time Test Comments Results Result Sourc e Comments TISSUE EXAM 2020-12-23 Surgical Pathology 07:54:00 Report Case: [id number] Authorizing Provider: Reynaldo Castro, Collected: 12/20/2020 08:19 AM Ordering Location: [facility] Received: 12/20/2020 10:25 AM PERIOPERATIVE SERVICES Pathologist: Osmany Vargas MD Specimen: Plaque, RIGHT CAROTID ARTERY PLAQUE ARTERY, RIGHT CAROTID, ENDARTERECTOMY:CALCIFI C ATHEROSCLEROTIC PLAQUE WITH INTRAPLAQUE HEMORRHAGE Signing Pathologist Direct Phone Line: [phone] ally signed by Osmany Vargas MD on 12/23/2020 at 7:54 [id number]; [id number] stenosis, right Artery, right carotidA. Received fresh labeled with the patient's name, medical record number and "plaque" is a previously incised tubular portion of yellow-red plaque with a bifurcation measuring 3 cm in length and ranging 0.5-1.0 cm in diameter. The specimen is serially sectioned to reveal calcifications measuring up to 0.3 cm in thickness. Case Aide sections are submitted in A1, following decalcification.MIMI Dumont, PA (ASCP)cmPerformed BASIC METABOLIC PANEL 2020-12-21 07:04:00 Test Item Value Reference Range Interpretation Comme nts SODIUM (BEAKER) (test code 137 meq/L 136-145 = 381) POTASSIUM (BEAKER) (test 4.1 meq/L 3.5-5.1 code = 379) CHLORIDE (BEAKER) (test 108 meq/L 98-107 H code = 382) CO2 (BEAKER) (test code = 24 meq/L 22-29 355) BLOOD UREA NITROGEN 10 mg/dL 7-21 (BEAKER) (test code = 354) CREATININE (BEAKER) (test 0.78 mg/dL 0.57-1.25 code = 358) GLUCOSE RANDOM (BEAKER) 103 mg/dL 70-105 (test code = 652) CALCIUM (BEAKER) (test code 8.0 mg/dL 8.4-10.2 L = 697) EGFR (BEAKER) (test code = 99 mL/min/1.73 sq m ESTIMATED GFR IS NOT 1092) ACCURATE CRE ATININE CLEARANCE IN [place] EDICTING GLOMERULAR FILT RATION RATE. ESTIMATED GFR IS NOT APPLICABLE FOR DIALYSIS PATIENTS. News Assistant ID - ANDREW [id number] 07:04:00 Test Item Value Reference Range Interpretation Comments MAGNESIUM (BEAKER) (test code = 2.3 mg/dL 1.6-2.6 627) News Assistant CHRISSY MORALES [facility] (HEMOGRAM ONLY)2020-12-21 06:29:00 Test Item Value Reference Range Interpretation Comments WHITE BLOOD CELL COUNT (BEAKER) 10.7 K/ L 3.5-10.5 H (test code = 775) RED BLOOD CELL COUNT (BEAKER) 3.92 M/ L 4.63-6.08 L (test code = 761) HEMOGLOBIN (BEAKER) (test code = 12.2 GM/DL 13.7-17.5 L 410) HEMATOCRIT (BEAKER) (test code = 36.9 % 40.1-51.0 L 411) MEAN CORPUSCULAR VOLUME (BEAKER) 94.1 fL 79.0-92.2 H (test code = 753) MEAN CORPUSCULAR HEMOGLOBIN 31.1 pg 25.7-32.2 (BEAKER) (test code = 751) MEAN CORPUSCULAR HEMOGLOBIN CONC 33.1 GM/DL 32.3-36.5 (BEAKER) (test code = 752) RED CELL DISTRIBUTION WIDTH 12.9 % 11.6-14.4 (BEAKER) (test code = 412) PLATELET COUNT (BEAKER) (test 183 K/CU MM 150-450 code = 756) MEAN PLATELET VOLUME (BEAKER) 10.2 fL 9.4-12.4 (test code = 754) NUCLEATED RED BLOOD CELLS 0 /100 WBC 0-0 (BEAKER) (test code = 413) THROMBOELASTOGRAPH (TEG)2020-12-20 12:44:00 Test Item Value Reference Range Interpretation Comments TEG ACTIVATED CLOTTING TIME 5.0 minutes 4.0-7.0 (BEAKER) (test code = 1407) TEG FIBRINOGEN ACTIVITY (BEAKER) 71.3 degrees 61.0-73.0 (test code = 1408) TEG PLT. AGGREGATION (BEAKER) 63.9 MM 55.0-65.0 (test code = 1409) TEG FIBRINOLYSIS (BEAKER) (test 0.8 % 0.0-5.0 code = 1410) TGH ACTIVATED CLOTTING TIME 5.0 minutes 4.0-7.0 (BEAKER) (test code = 1411) TGH FIBRINOGEN ACTIVITY (BEAKER) 50.5 degrees 61.0-73.0 L (test code = 1412) TGH PLT. AGGREGATION (BEAKER) 63.1 MM 55.0-65.0 (test code = 1413) TGH FIBRINOLYSIS (BEAKER) (test 1.7 % 0.0-5.0 code = 1414) [id number] 12:21:00 Test Item Value Reference Range Interpretation Comments ACTIVATED CLOTTING TIME 279 sec : 74 -137 seconds, (BEAKER) (test code = Baseli ne: TESTED AT 441) [facility] [address] [place], [address]: News Assistant/Techni dao ID = [id number] for CA STRO, KANWAL BLOOD GAS, [id number] 11:44:00 Test Item Value Reference Range Interpretation Comments PH ARTERIAL (BEAKER) (test code = 7.34 7.35-7.45 L 383) PCO2 ARTERIAL (BEAKER) (test code 40 mm Hg 35-45 = 384) PO2 ARTERIAL (BEAKER) (test code 165 mm Hg 80-90 H = 385) O2 SATURATION ARTERIAL (BEAKER) 99.0 % 96.0-97.0 H (test code = 386) HCO3 ARTERIAL (BEAKER) (test code 21 mmol/L 21-29 = 388) BASE EXCESS ARTERIAL (BEAKER) -4.7 mmol/L -2.0-3.0 L (test code = 387) PATIENT TEMPERATURE (BEAKER) 37.0 (test code = 1818) FIO2 (BEAKER) (test code = 1819) 50.0 [id number] 10:42:00 Test Item Value Reference Range Interpretation Comments FIBRINOGEN LEVEL (BEAKER) (test 245 mg/dl 225-434 code = 658) [id number] 10:41:00 Test Item Value Reference Range Interpretation Comments PROTIME (BEAKER) (test 14.2 seconds 11.9-14.2 code = 759) INR (BEAKER) (test 1.12 See_Comment [Automat ed code = 370) message] The sy stem which generated this result transmitted reference range : <=5.90. The reference range was not used to interpret this result as normal/abnormal . PARTIAL THROMBOPLASTIN 27.2 seconds 22.5-36.0 TIME (BEAKER) (test code = 760) RECOMMENDED COUMADIN/WARFARIN INR THERAPY RANGESSTANDARD DOSE: 2.0 - 3.0 Includes: PROPHYLAXIS for venous thrombosis, systemic embolization; TREATMENT for venous thrombosis and/or pulmonary embolus.HIGH RISK: Target INR is 2.5-3.5 for patients with mechanical heart valves.BASIC METABOLIC [id number] 10:41:00 Test Item Value Reference Range Interpretation Comments SODIUM (BEAKER) 136 meq/L 136-145 (test code = 381) POTASSIUM (BEAKER) 4.7 meq/L 3.5-5.1 (test code = 379) CHLORIDE (BEAKER) 110 meq/L 98-107 H (test code = 382) CO2 (BEAKER) (test 19 meq/L 22-29 L code = 355) BLOOD UREA NITROGEN 16 mg/dL 7-21 (BEAKER) (test code = 354) CREATININE (BEAKER) 0.81 mg/dL 0.57-1.25 (test code = 358) GLUCOSE RANDOM 168 mg/dL 70-105 H (BEAKER) (test code = 652) CALCIUM (BEAKER) 7.6 mg/dL 8.4-10.2 L (test code = 697) EGFR (BEAKER) (test 95 mL/min/1.73 ESTIMA EZRA GFR IS code = 1092) sq m NOT ACCURATE CREATININE CLEARANCE IN PREDICTING GLOMERULAR FILTRATION RATE . ESTIMATED GFR I S NOT APPLICABLE FOR DIALYSIS PATIEN TS. News Assistant ID - [id number] 10:40:00 Test Item Value Reference Range Interpretation Comments MAGNESIUM (BEAKER) (test code = 1.8 mg/dL 1.6-2.6 627) News Assistant ID - [id number] 10:40:00 Test Item Value Reference Range Interpretation Comments PHOSPHORUS (BEAKER) (test code = 2.8 mg/dL 2.3-4.7 604) News Assistant ID - DBRAD, CHEST, 1 VIEW, NON [id number] 10:30:00Reason for exam:- >post op, resp failure, reintubationShould this be performed at the bedside?->YesNA[facility] : 1950 Sex: MFINAL REPORT RAD, CHEST, 1 VIEW, NON DEPT INDICATION: post op, resp failure, reintubation COMPARISON: Prior day's exam FINDINGS: Portable frontal view of the chest. IMPRESSION: Support Lines: ET tube tip is 1.5 cm superior to the karol. NG tube descends below the diaphragm. Lungs and pleura:Mild basilar atelectasis No pneumothorax.Heart and mediastinum: Stable contours.Additional findings:None. Signed: Cata Gusman Verified Date/Time: 12/20/2020 10:30:08 Reading Location: [facility] Radiology Reading Room CBC (HEMOGRAM ONLY)2020-12-20 10:27:00 Test Item Value Reference Range Interpretation Comments WHITE BLOOD CELL COUNT (BEAKER) 11.8 K/ L 3.5-10.5 H (test code = 775) RED BLOOD CELL COUNT (BEAKER) 3.90 M/ L 4.63-6.08 L (test code = 761) HEMOGLOBIN (BEAKER) (test code = 12.3 GM/DL 13.7-17.5 L 410) HEMATOCRIT (BEAKER) (test code = 36.5 % 40.1-51.0 L 411) MEAN CORPUSCULAR VOLUME (BEAKER) 93.6 fL 79.0-92.2 H (test code = 753) MEAN CORPUSCULAR HEMOGLOBIN 31.5 pg 25.7-32.2 (BEAKER) (test code = 751) MEAN CORPUSCULAR HEMOGLOBIN CONC 33.7 GM/DL 32.3-36.5 (BEAKER) (test code = 752) RED CELL DISTRIBUTION WIDTH 12.6 % 11.6-14.4 (BEAKER) (test code = 412) PLATELET COUNT (BEAKER) (test 188 K/CU MM 150-450 code = 756) MEAN PLATELET VOLUME (BEAKER) 10.0 fL 9.4-12.4 (test code = 754) NUCLEATED RED BLOOD CELLS 0 /100 WBC 0-0 (BEAKER) (test code = 413) CALCIUM, [id number] 10:13:00 Test Item Value Reference Range Interpretation Comments CALCIUM IONIZED (BEAKER) (test 1.04 mmol/L 1.12-1.27 L code = 698) PH, BLOOD (BEAKER) (test code = 7.34 1810) BLOOD GAS, [id number] 10:13:00 Test Item Value Reference Range Interpretation Comments PH ARTERIAL (BEAKER) (test code = 7.34 7.35-7.45 L 383) PCO2 ARTERIAL (BEAKER) (test code 38 mm Hg 35-45 = 384) PO2 ARTERIAL (BEAKER) (test code 108 mm Hg 80-90 H = 385) O2 SATURATION ARTERIAL (BEAKER) 97.7 % 96.0-97.0 H (test code = 386) HCO3 ARTERIAL (BEAKER) (test code 20 mmol/L 21-29 L = 388) BASE EXCESS ARTERIAL (BEAKER) -4.9 mmol/L -2.0-3.0 L (test code = 387) PATIENT TEMPERATURE (BEAKER) 37.0 (test code = 1818) FIO2 (BEAKER) (test code = 1819) 60.0 POCT-GLUCOSE [id number] 06:16:00 Test Item Value Reference Range Interpretation Comments POC-GLUCOSE METER 95 mg/dL 70-110 : TESTED A T [facility] [address] (BEAKER) (test code = [place], [address]) [id number]: News Assistant/Techni dao ID = [id number] for FRANKIE WALTER SARS-COV2/RT-PCR ([facility])2020-12-15 20:02:00 Test Item Value Reference Range Interpretation Comments SARS-COV2/RT-PCR (test Negative Not Detected, Negative, code = 9002337) See external report for linked test SARS-COV-[address] [facility] RASHAWN (test code = 3825602) Negative result for this test determines that SARS-CoV-2 RNA was not present in the specimen above the Limit of Detection (LOD). However, Negative results do not preclude SARS-CoV-2 infection and should not be used as the sole basis for treatment or patient management decisions. Negative results must be combined with clinical observations, patient history, and epidemiological information. A false negative result may occur if a specimen is improperly collected, transported or handled. A false negative result should be considered if patient's recent exposures or clinical presentation indicate that COVID-19 (SARS-CoV-2) is likely and diagnostic tests for other causes of illness are negative. Re-testing should be considered in cases of suspected false negatives.The limit of detection for this assay is 100 copies/mL.This SARS CoV-2 test is a real-time RT-PCR test intended for the qualitative detection of nucleic acid from SARS-CoV-2 in a nasopharyngeal swab specimen collected from individuals suspected of COVID-19 by their healthcare provider.This test has not been Food and Drug Administration (FDA) cleared or approved. This is a modified version of an approved Emergency Use Authorization (EUA) and is in the process of review by the FDA. Once authorized by the FDA, the issued EUA will be effective until the declaration that circumstances exist justifying the authorization of the emergency use ofin vitro diagnostic tests for detection and/or diagnosis of COVID-19 is terminated under Section 564(b)(2) of the Act or the EUA is revoked under Section 564(g) of the Act.Testing was performed using the [employer] SARS-CoV-2 assay.Fact Sheet for Healthcare Providers:https://www.molecular.brumfield/palomo/RT_SAR Q-TrD-9_USB_Ztss_Bqwji_62-705405.pdfFact Sheet for Healthcare Patients:https://www.molecular.brumfield/s al/PX_LKQT-JqO-5_Pnqltpe_Jplu_Tfvfv_DX_11-804278U1.pdfPerforming Laboratory:[facility] [place] [address] BASIC METABOLIC [id number] 12:41:00 Test Item Value Reference Range Interpretation Comments SODIUM (BEAKER) 138 meq/L 136-145 (test code = 381) POTASSIUM (BEAKER) 4.3 meq/L 3.5-5.1 (test code = 379) CHLORIDE (BEAKER) 105 meq/L 98-107 (test code = 382) CO2 (BEAKER) (test 25 meq/L 22-29 code = 355) BLOOD UREA NITROGEN 12 mg/dL 7-21 (BEAKER) (test code = 354) CREATININE (BEAKER) 0.93 mg/dL 0.57-1.25 (test code = 358) GLUCOSE RANDOM 103 mg/dL 70-105 (BEAKER) (test code = 652) CALCIUM (BEAKER) 9.0 mg/dL 8.4-10.2 (test code = 697) EGFR (BEAKER) (test 81 mL/min/1.73 ESTIMA EZRA GFR IS code = 1092) sq m NOT ACCURATE CREATININE CLEARANCE IN PREDICTING GLOMERULAR FILTRATION RATE . ESTIMATED GFR I S NOT APPLICABLE FOR DIALYSIS PATIEN TS. News Assistant ID - [id number] 12:38:00 Test Item Value Reference Range Interpretation Comments PROTIME (BEAKER) 13.1 seconds 11.9-14.2 (test code = 759) INR (BEAKER) (test 1.03 See_Comment [Automat ed message] code = 370) The system [employer] generated this result transmitted ref erence range: <=5.90. The reference range was not used to int erpret this result as normal/abnormal . RECOMMENDED COUMADIN/WARFARIN INR THERAPY RANGESSTANDARD DOSE: 2.0 - 3.0 Includes: PROPHYLAXIS for venous thrombosis, systemic embolization; TREATMENT for venous thrombosis and/or pulmonary embolus.HIGH RISK: Target INR is 2.5-3.5 for patients with mechanical heart valves.[id number] 12:38:00 Test Item Value Reference Range Interpretation Comments PARTIAL THROMBOPLASTIN TIME 28.4 seconds 22.5-36.0 (BEAKER) (test code = 760) CBC W/PLT COUNT & AUTO [id number] 12:26:00 Test Item Value Reference Range Interpretation Comments WHITE BLOOD CELL COUNT (BEAKER) 7.5 K/ L 3.5-10.5 (test code = 775) RED BLOOD CELL COUNT (BEAKER) 4.68 M/ L 4.63-6.08 (test code = 761) HEMOGLOBIN (BEAKER) (test code = 14.8 GM/DL 13.7-17.5 410) HEMATOCRIT (BEAKER) (test code = 42.8 % 40.1-51.0 411) MEAN CORPUSCULAR VOLUME (BEAKER) 91.5 fL 79.0-92.2 (test code = 753) MEAN CORPUSCULAR HEMOGLOBIN 31.6 pg 25.7-32.2 (BEAKER) (test code = 751) MEAN CORPUSCULAR HEMOGLOBIN CONC 34.6 GM/DL 32.3-36.5 (BEAKER) (test code = 752) RED CELL DISTRIBUTION WIDTH 12.8 % 11.6-14.4 (BEAKER) (test code = 412) PLATELET COUNT (BEAKER) (test 226 K/CU MM 150-450 code = 756) MEAN PLATELET VOLUME (BEAKER) 9.6 fL 9.4-12.4 (test code = 754) NUCLEATED RED BLOOD CELLS 0 /100 WBC 0-0 (BEAKER) (test code = 413) NEUTROPHILS RELATIVE PERCENT 55 % (BEAKER) (test code = 429) LYMPHOCYTES RELATIVE PERCENT 32 % (BEAKER) (test code = 430) MONOCYTES RELATIVE PERCENT 9 % (BEAKER) (test code = 431) EOSINOPHILS RELATIVE PERCENT 3 % (BEAKER) (test code = 432) BASOPHILS RELATIVE PERCENT 1 % (BEAKER) (test code = 437) NEUTROPHILS ABSOLUTE COUNT 4.14 K/ L 1.78-5.38 (BEAKER) (test code = 670) LYMPHOCYTES ABSOLUTE COUNT 2.41 K/ L 1.32-3.57 (BEAKER) (test code = 414) MONOCYTES ABSOLUTE COUNT (BEAKER) 0.70 K/ L 0.30-0.82 (test code = 415) EOSINOPHILS ABSOLUTE COUNT 0.22 K/ L 0.04-0.54 (BEAKER) (test code = 416) BASOPHILS ABSOLUTE COUNT (BEAKER) 0.05 K/ L 0.01-0.08 (test code = 417) IMMATURE GRANULOCYTES-RELATIVE 0 % 0-1 PERCENT (BEAKER) (test code = 2801)
[2023-04-15 21:21] LABS: Absolute Lymphocytes (CBC) 2.7 K/uL (0.7-4.9); Hematocrit 43.6 % (39.6-49.0); Lymphocytes % 33.6 % (15.3-44.8); MCV 93.1 fL (80-100); MPV 7.9 fL (7.6-11.3); Platelets 218 thou/uL (152-406); RBC Red Blood Cell Count 4.69 M/uL (4.33-5.43)
[2023-04-15 21:22] LABS: Protime INR 0.95
[2023-04-15] MEDS ORDERED: ASPIRIN 81 MG CHEWABLE TABLET ONE (21:23)
[2023-04-15 21:38] LABS: Albumin 3.6 g/dL (3.4-5.0); Bilirubin Direct 0.1 mg/dL (0-0.2); Bilirubin Indirect, Calculated 0.3 mg/dL (0.2-0.8); Bilirubin Total 0.4 mg/dL (0.2-1.0); Magnesium 2.2 mg/dL (1.6-2.4); Protein, Total 7.5 g/dL (6.4-8.2); Troponin High Sensitivity 9.8 pg/mL (<58.9)
--- NOTE | 2023-04-15 21:40 | RAD REPORT ---
EXAM DESCRIPTION: RAD - Chest Single View - 04/15/2023 9:33 pm CLINICAL HISTORY: CHEST PAIN COMPARISON: Chest Pa And Lat (2 Views) dated 06/23/2020; Chest Single View dated 08/01/2019; CHEST SI NGLE VIEW dated 02/18/2015 FINDINGS: Lines: None. Lungs: No evidence of edema or pneumonia. Pleural: No significant pleural effusions or pneumothorax. Cardiac: The heart size is within normal limits. Mediastinum: Within normal limits. Bones: No acute fractures. Other: None IMPRESSION: No acute cardiopulmonary disease.
--- NOTE | 2023-04-15 21:50 | EDPHYS ---
Physician Documentation [facility] Name: Santiago Odonnell Age: 72 yrs Sex: Male : 1950 Arrival Date: 04/15/2023 Time: 20:49 Bed 17 Private MD: ED Physician Sharan Gonzalez HPI: 04/15 21:11 This 72 yrs old Male presents to ER via Ambulatory with complaints of Chest sb4 Pain, Back Pain. 21:12 The patient or guardian reports chest pain that is located primarily in the substernal sb4 area. Onset: this morning. The pain radiates to back. Associated signs and symptoms: Pertinent positives: shortness of breath. Modifying factors: The patient symptoms are alleviated by nothing, the patient symptoms are aggravated by nothing. The patient has experienced a previous episode, but today's symptoms are not as bad as this previous episode. The patient has not recently seen a physician. Historical: - Allergies: 20:59 No Known Allergies; mb9 - Home Meds: 20:59 tamsulosin 0.4 mg oral capsule [Active]; metoprolol tartrate 50 mg Oral tablet mb9 [Active]; lisinopril 5 mg Oral tablet [Active]; meloxicam 15 mg oral tablet [Active]; clopidogrel 75 mg oral tablet [Active]; atorvastatin 40 mg oral tablet [Active]; - PMHx: 20:59 KS; mb9 - PSHx: 20:59 Stented artery; mb9 - Immunization history:: Adult Immunizations up to date. - Social history:: Smoking status: Patient denies any tobacco usage or history of. ROS: 21:12 Constitutional: Negative for fever, chills, and weight loss, sb4 21:12 Cardiovascular: Positive for chest pain, 21:12 All other systems are negative, Exam: 21:12 Constitutional: This is a well developed, well nourished patient who is awake, alert, sb4 and in no acute distress. Head/Face: Normocephalic, atraumatic. Eyes: Extra-ocular motions intact. Periorbital areas with no swelling, redness, or edema. ENT: Mucous membranes moist. Cardiovascular: Regular rate and rhythm with a normal S1 and S2. Respiratory: Lungs have equal breath sounds bilaterally, clear to auscultation and percussion. No rales, rhonchi or wheezes noted. No increased work of breathing, no retractions or nasal flaring. Abdomen/GI: Soft, non-tender, no distension. Skin: Warm, dry with normal turgor. Normal color with no rashes, no lesions, and no evidence of cellulitis. MS/ Extremity: Pulses equal, no cyanosis. Neurovascular intact. Full, normal range of motion. Neuro: Awake and alert, GCS 15, oriented to person, place, time, and situation. Motor strength 5/5 in all extremities. Sensory grossly intact. Vital Signs: 21:01 BP 143 / 79; Pulse 70; Resp 20; Temp 98.2; Pulse Ox 95% on R/A; Weight 70.31 kg; Height mb9 5 ft. 0 in. ; Pain 8/10; 22:25 BP 139 / 63; Pulse 61; Resp 19 S; Pulse Ox 96% on R/A; lg3 21:01 Body Mass Index 30.27 (70.31 kg, 152.4 cm) mb9 21:01 Pain Scale: Adult mb9 MDM: 21:07 Patient medically screened. sb4 21:12 The patient was given aspirin in the Emergency Department. Differential diagnosis: sb4 abnormal EKG, acute myocardial infarction, coronary artery disease congestive heart failure gastritis, pneumonia, pulmonary embolus, stable angina, thoracic aortic disection, unstable angina. 21:43 Scoring Tools HEART Score: History: ECG: Age: Risk Factors: > or = 3 Risk factors for sb4 atherosclerotic disease (2), Troponin: Total Score = 5. 21:48 Data reviewed: vital signs, nurses notes, lab test result(s), EKG, radiologic studies, sb4 and as a result, I will admit patient. Consideration of Admission/Observation Patient was admitted/placed on observation. Care significantly affected by the following chronic conditions: Hypertension, coronary artery disease. Counseling: I had a detailed discussion with the patient and/or guardian regarding the historical points, exam findings, and any diagnostic results supporting the discharge/admit diagnosis, the presence of at least one elevated blood pressure reading (>120/80) during this emergency department visit, lab results, radiology results, the need for further work-up and treatment in the hospital. 04/15 21:07 Order name: Basic Metabolic Panel; Complete Time: 21:42 sb4 04/15 21:07 Order name: CBC with Diff; Complete Time: 21:30 sb4 04/15 21:07 Order name: LFT's; Complete Time: 21:42 sb4 04/15 21:07 Order name: Magnesium; Complete Time: 21:42 sb4 04/15 21:07 Order name: NT PRO-BNP; Complete Time: 21:42 sb4 04/15 21:07 Order name: PT-INR; Complete Time: 21:22 sb4 04/15 21:07 Order name: Troponin HS; Complete Time: 21:42 sb4 04/15 21:07 Order name: XRAY Chest (1 view); Complete Time: 21:42 sb4 04/15 21:44 Order name: CT Aorta for Dissection; Complete Time: 22:29 sb4 04/15 21:07 Order name: EKG; Complete Time: 21:08 sb4 04/15 22:22 Order name: CONS Physician Consult EDMS 04/15 21:07 Order name: Cardiac monitoring; Complete Time: 21:23 sb4 04/15 21:07 Order name: EKG - Nurse/Tech; Complete Time: 21:23 sb4 04/15 21:07 Order name: IV Saline Lock; Complete Time: 21:23 sb4 04/15 21:07 Order name: Labs collected and sent; Complete Time: 21:23 sb4 04/15 21:07 Order name: O2 Per Protocol; Complete Time: 21:23 sb4 04/15 21:07 Order name: O2 Sat Monitoring; Complete Time: 21:23 sb4 EC:12 Rate is 67 beats/min. Rhythm is regular, Normal Sinus Rhythm. Left axis deviation sb4 noted. [place] interval is normal at 154 msec. QRS interval is normal at 96 msec. QT interval is normal at [address] changes noted. Clinical impression: Abnormal EKG without significant change. Interpreted by me. Reviewed by me. Administered Medications: 21:23 Drug: Aspirin PO Chewable Tablet 324 mg PO once; 81 mg tablets x 4 Route: PO; lg3 22:24 Follow up: Response: No adverse reaction lg3 Disposition Summary: 04/15/23 21:49 Hospitalization Ordered Notes: Hospitalization Status: Observation sb4 Provider: Ronen Mayen Location: Telemetry/MedSurg (observation) sb4 Condition: Fair sb4 Problem: new sb4 Symptoms: are unchanged sb4 Bed/Room Type: Standard sb4 Room Assignment: 225(04/15/23 22:31) mw Diagnosis - Chest pain, unspecified sb4 Forms: - Medication Reconciliation Form sb4 - SBAR form sb4 - Leadership Thank You Letter sb4 Signatures: Dispatcher [employer] Agustina Gonzalez RN RN mw Gibson, Lacie, RN RN randa3 Nyasia Villa PA-C PA-C sb4 Cheyanne Delong RN RN mb9 Corrections: (The following items were deleted from the chart) 21:49 sb4 mw
--- NOTE | 2023-04-15 21:50 | ER ---
Nurse's Notes [facility] Name: Santiago Odonnell Age: 72 yrs Sex: Male : 1950 Arrival Date: 04/15/2023 Time: 20:49 Bed 17 Private MD: Diagnosis: Chest pain, unspecified Presentation: 04/15 21:01 Chief complaint: Patient states: "Around 11am today, I started having left sided chest mb9 pain that goes to my back. It feels like I can't take a breath". Coronavirus screen: Vaccine status: Patient reports being unvaccinated. Ebola Screen: No symptoms or risks identified at this time. Initial Sepsis Screen: Does the patient meet any 2 criteria? No. Patient's initial sepsis screen is negative. Does the patient have a suspected source of infection? No. Patient's initial sepsis screen is negative. Risk Assessment: Do you want to hurt yourself or someone else? Patient reports no desire to harm self or others. Onset of symptoms was April 15, 2023. 21:01 Method Of Arrival: Ambulatory mb9 21:01 Acuity: WALTER 3 mb9 Triage Assessment: 21:02 General: Appears in no apparent distress. Behavior is calm, cooperative. Pain: mb9 Complains of pain in chest Pain radiates to back. EENT: No signs and/or symptoms were reported regarding the EENT system. Neuro: Mares Agitation-Sedation Scale (RASS): 0 - Alert and Calm Level of Consciousness is awake, alert, obeys commands, Oriented to person, place, time, situation, Appropriate for age. Cardiovascular: Reports chest pain, shortness of breath, Patient's skin is warm and dry. Respiratory: Reports shortness of breath. GI: No signs and/or symptoms were reported involving the gastrointestinal system. : No signs and/or symptoms were reported regarding the genitourinary system. Derm: Skin is pink, warm \\T\\ dry. Musculoskeletal: Range of motion: intact in all extremities. Historical: - Allergies: 20:59 No Known Allergies; mb9 - Home Meds: 20:59 tamsulosin 0.4 mg oral capsule [Active]; metoprolol tartrate 50 mg Oral tablet mb9 [Active]; lisinopril 5 mg Oral tablet [Active]; meloxicam 15 mg oral tablet [Active]; clopidogrel 75 mg oral tablet [Active]; atorvastatin 40 mg oral tablet [Active]; - PMHx: 20:59 [place]; mb9 - PSHx: 20:59 Stented artery; mb9 - Immunization history:: Adult Immunizations up to date. - Social history:: Smoking status: Patient denies any tobacco usage or history of. Screenin:20 [facility] ED Fall Risk Assessment (Adult) History of falling in the last 3 months, lg3 including since admission No falls in past 3 months (0 pts). Abuse screen: Denies threats or abuse. Denies injuries from another. Nutritional screening: No deficits noted. Tuberculosis screening: No symptoms or risk factors identified. Assessment: 21:20 General: Appears in no apparent distress. comfortable, Behavior is calm, cooperative. lg3 Pain: Complains of pain in chest Pain radiates to back Pain began gradually, Also complains of shortness of breath. 21:20 Neuro: No deficits noted. Mares Agitation-Sedation Scale (RASS): 0 - Alert and Calm lg3 Level of Consciousness is awake, alert, obeys commands, Oriented to person, place, time, situation. Cardiovascular: No deficits noted. Reports chest pain, shortness of breath, Rhythm is sinus rhythm. Respiratory: No deficits noted. Airway is patent Respiratory effort is even, unlabored, Respiratory pattern is regular, symmetrical, Breath sounds are clear bilaterally. GI: No deficits noted. No signs and/or symptoms were reported involving the gastrointestinal system. : No deficits noted. No signs and/or symptoms were reported regarding the genitourinary system. EENT: No deficits noted. No signs and/or symptoms were reported regarding the EENT system. Derm: No deficits noted. No signs and/or symptoms reported regarding the dermatologic system. Skin is intact, is healthy with good turgor, Skin is dry, Skin is normal, Skin temperature is warm. Musculoskeletal: No deficits noted. No signs and/or symptoms reported regarding the musculoskeletal system. Circulation, motion, and sensation intact. Range of motion: intact in all extremities. 22:25 Reassessment: Patient appears in no apparent distress at this time. No changes from lg3 previously documented assessment. Patient and/or family updated on plan of care and expected duration. Pain level reassessed. Patient is alert, oriented x 3, equal unlabored respirations, skin warm/dry/pink. 22:47 General: attempted to call report. no answer from nurse. . lg3 Vital Signs: 21:01 BP 143 / 79; Pulse 70; Resp 20; Temp 98.2; Pulse Ox 95% on R/A; Weight 70.31 kg; Height mb9 5 ft. 0 in. ; Pain 8/10; 22:25 BP 139 / 63; Pulse 61; Resp 19 S; Pulse Ox 96% on R/A; lg3 21:01 Body Mass Index 30.27 (70.31 kg, 152.4 cm) mb9 21:01 Pain Scale: Adult mb9 ED Course: 20:51 Patient arrived in ED. jj6 20:58 Marimar Wiggins, RN is Primary Nurse. lg3 20:59 Arm band placed on. mb9 21:02 Triage completed. mb9 21:03 Placed in gown. Bed in low position. Call light in reach. Side rails up X 1. Client mb9 placed on continuous cardiac and pulse oximetry monitoring. NIBP monitoring applied. monitoring engineer on. 21:07 Nyasia Villa PA-C is PHCP. sb4 21:07 Sharan Gonzalez MD is Attending Physician. sb4 21:20 Door closed. Noise minimized. Warm blanket given. lg3 21:20 Inserted saline lock: 20 gauge in right antecubital area, using aseptic technique. lg3 Blood collected. Patient maintains SpO2 saturation greater than 95% on room air. 21:23 Basic Metabolic Panel Sent. lg3 21:23 CBC with Diff Sent. lg3 21:23 LFT's Sent. lg3 21:23 Magnesium Sent. lg3 21:23 NT PRO-BNP Sent. lg3 21:23 Troponin HS Sent. lg3 21:35 XRAY Chest (1 view) In Process Unspecified. EDMS 21:49 Ronen Mayen is Hospitalizing Provider. sb4 22:09 CT Aorta for Dissection In Process Unspecified. EDMS 22:48 No provider procedures requiring assistance completed. Patient admitted, IV remains in lg3 place. intact, No redness/swelling at site. Administered Medications: 21:23 Drug: Aspirin PO Chewable Tablet 324 mg PO once; 81 mg tablets x 4 Route: PO; lg3 22:24 Follow up: Response: No adverse reaction lg3 Medication: 22:48 VIS not applicable for this client. lg3 Outcome: 21:49 Decision to Hospitalize by Provider. sb4 23:10 Admitted to Med/surg accompanied by tech, via wheelchair, room 225, Report called to lg3 Kelechi 23:10 Condition: stable 23:10 Instructed on the need for admit, Demonstrated understanding of instructions, 23:30 Patient left the ED. mb9 Signatures: Dispatcher [employer] Marimar Russell, RN RN lg3 Sondra Ortega Sophia, PA-C PA-C sb4 Cheyanne Delong RN RN mb9 Corrections: (The following items were deleted from the chart) 21:22 21:20 General: Appears in no apparent distress. comfortable, Behavior is calm, lg3 cooperative, lg3 21:22 21:20 Pain: Complains of pain in chest Pain radiates to back Pain began gradually, lg3 lg3
--- NOTE | 2023-04-15 22:07 | P.HP ---
Certification for Inpatient Patient admitted to: Observation With expected LOS: <2 Midnights Patient will require the following post-hospital care: None Practitioner: I am a practitioner with admitting privileges, knowledge of patient current condition, hospital course, and medical plan of care. Services: Services provided to patient in accordance with Admission requirements found in Title 42 Section 412.3 of the Code of Federal Regulations Patient History Date of Service: 04/15/23 Reason for admission: chest pain History of Present Illness: 72-year-old male with a past medical history of CAD, hypertension with PCI, hyperlipidemia, BPH, presents to the emergency room with substernal chest pain that started today. Reports chest pain is intermittent rated about a 3 out of 10, nonradiating. He reports mild chronic shortness of breath, he denies history of asthma or COPD no reported history of tobacco use. He reports history of CAD with PCI, reports history of right carotid endarterectomy 1 year ago. He denies dizziness, chest pain radiation, diaphoresis, fever nausea vomiting diarrhea, syncope. Plan to admit for chest pain rule out IA with cardiology to consult. BP 143 / 79; Pulse 70; Resp 20; Temp 98.2; Pulse Ox 95% on R/A; Weight 70.31 kg; Height 5 ft. 0 in. ; Pain 8/10; 21:12 Rate is 67 beats/min. Rhythm is regular, Normal Sinus Rhythm. Left axis deviation sb4 noted. [place] interval is normal at 154 msec. QRS interval is normal at 96 msec. QT interval is normal at [address] changes noted. Clinical impression: Abnormal EKG without significant change. Laboratory evaluation CBC unremarkable CMP unremarkable BNP 270 troponin normal at 9.8, CT of the chest negative for dissection Allergies No Known Drug Allergies Allergy (Verified 10/19/20 11:00) Unknown Home Medications: Clopidogrel Bisulfate [Plavix*] 75 mg PO DAILY #30 tablet 02/23/15 Aspirin [Aspirin EC 81 MG] 81 tab PO DAILY 06/24/20 Atorvastatin Calcium 40 tab PO DAILY 06/24/20 Metoprolol Succinate 50 tab PO DAILY 06/24/20 Tamsulosin HCl 0.4 tab PO DAILY 06/24/20 lisinopriL [Lisinopril] 5 mg PO DAILY 06/24/20 - Past Medical/Surgical History Diabetic: No -: CAD -: HPN -: Dyslipidemia -: BPH -: PCI -: Carotid endarterectomy - Family History Mother -: Diabetes - Social History Smoking Status: Never smoker Alcohol use: No CD- Drugs: No Caffeine use: Yes Place of Residence: Home Review of Systems 10-point ROS is otherwise unremarkable Physical Examination - Physical Exam General: Alert, In no apparent distress, Oriented x3 HEENT: Normocephalic, PERRLA Neck: Supple, 2+ carotid pulse no bruit, JVD not distended Respiratory: Clear to auscultation bilaterally, Normal air movement Cardiovascular: Normal pulses, Regular rate/rhythm, Normal S1 S2 Capillary refill: <2 Seconds Gastrointestinal: Normal bowel sounds, Soft and benign Musculoskeletal: No clubbing, No swelling Integumentary: No rashes, No breakdown Neurological: Normal speech, Normal strength at 5/5 x4 extr, Normal tone - Studies Laboratory Data (last 24 hrs) 04/15/23 04/15/23 04/15/23 21:00 21:00 21:00 WBC 8.10 Hgb 15.5 Hct 43.6 Plt Count 218 PT 10.5 INR 0.95 Sodium 137 Potassium 4.0 BUN 16 Creatinine 1.04 Glucose 114 H Magnesium 2.2 Total Bilirubin 0.4 AST 27 ALT 42 Alkaline Phosphatase 57 Assessment and Plan - Plan Assessment plan Chest pain rule out IA Essential hypertension Hyperlipidemia CAD with history of PCI, carotid endarterectomy BPH DVT prophylaxis Assessment plan Chest pain rule out IA Essential hypertension Hyperlipidemia CAD with history of PCI, carotid endarterectomy Cardiology consult, trend troponins, BNP, telemetry BNP 270 troponin normal at 9.8, CT of the chest negative for dissection As needed analgesics, aspirin, Plavix, metoprolol BP 143 / 79; Pulse 70; Resp 20; Temp 98.2; Pulse Ox 95% on R/A; Weight 70.31 kg; Height 5 ft. 0 in. ; Pain 8/10; EKG 67 beats/min. Rhythm is regular, Normal Sinus Rhythm. Left axis deviation noted. [place] interval is normal at 154 msec. QRS interval is normal at 96 msec. QT interval is normal at [address] changes noted. Clinical impression: Abnormal EKG without significant change. BPH Resume appropriate home medications Full code N.p.o. after midnight DVT prophylaxi Discharge Plan: Home Plan to discharge in: 24 Hours - Advance Directives Does patient have a Living Will: No Does patient have a Durable POA for Healthcare: No - Code Status/Comfort Care Code Status: Full Code Physician Review: Patient Assessed, Agree with Above Assessment and Plan Critical Care: No Time Spent Managing Pts Care (In Minutes): 50
--- NOTE | 2023-04-15 22:18 | RAD REPORT ---
EXAM DESCRIPTION: CTAngio Aorta For Dissection - 04/15/2023 10:07 pm CLINICAL HISTORY: DISSECTION COMPARISON: CTANGIO AORTA FOR DISSECTION dated 02/18/2015 TECHNIQUE: CTA of the chest, abdomen, and pelvis was performed. MIPS of the aorta were created. All CT scans are performed using dose optimization technique as appropriate and may include automated exposure control or mA/KV adjustment according to patient size. FINDINGS: Thorax: Chest Wall: No abnormal mass Lungs: No acute abnormality. Pleura: No effusions or pneumothorax. Radha/Mediastinum: No lymphadenopathy. Aorta/Pulmonary Arteries: Unremarkable Heart: Normal size. Multi-vessel coronary disease. Abdomen/Pelvis: Liver: No acute abnormality or suspicious lesions. Biliary: No biliary ductal dilatation. Stomach: No significant focal abnormality. Duodenum: No significant focal abnormality. Pancreas: No significant abnormality. Spleen: No significant abnormality. Adrenal: No suspicious lesions. Kidney/ureter: No hydronephrosis. No renal calculi. Retroperitoneum: No retroperitoneal adenopathy. Vascular: No aneurysm. Bowel: Normal appendix.. Peritoneum: No ascites or free air. Bladder: Grossly unremarkable. Reproductive: No adnexal masses. Bones: No acute fracture. Grade 2 anterolisthesis of L5 on S1. Bilateral pars defects. Other: n/a IMPRESSION: No aortic aneurysm or aortic dissection. No pulmonary embolus. No acute findings identif ied.
[2023-04-15] MEDS ORDERED: ONDANSETRON 4 MG/2 ML VIAL IV PRN (23:19)
[2023-04-15] MEDS ORDERED: ALPRAZOLAM 0.25 MG TABLET PO PRN (23:19)
[2023-04-15] MEDS ORDERED: ACETAMINOPHEN 500 MG TAB PO PRN (23:19)
[2023-04-15] MEDS ORDERED: MORPHINE 2 MG/ML SYR IV PRN (23:19)
[2023-04-16 03:10] LABS: Hematocrit 40.2 % (39.6-49.0); Lymphocytes % 36.1 % (15.3-44.8); MPV 7.9 fL (7.6-11.3); Platelets 186 thou/uL (152-406); RBC Red Blood Cell Count 4.28 M/uL (4.33-5.43)
[2023-04-16 04:03] LABS: Magnesium 2.2 mg/dL (1.6-2.4); Potassium 4.2 mEq/L (3.5-5.1)
[2023-04-16] MEDS: METOPROLOL XL 50 MG TAB PO SCH (09:00)
[2023-04-16] MEDS: TAMSULOSIN 0.4 MG SR CAP PO SCH (10:38)
[2023-04-16] MEDS: CLOPIDOGREL 75 MG TABLET PO SCH (10:38)
[2023-04-16] MEDS: ASPIRIN EC 81 MG TAB PO SCH (10:38)
[2023-04-16] MEDS: ATORVASTATIN 40 MG TAB PO SCH (10:38)
[2023-04-16] MEDS ORDERED: INFLUENZA VACCINE (for 6+ mo) 0.5 ML DOSE IMVAC ONE (12:00)
[2023-04-16] MEDS ORDERED: PNEUMOCOCCAL VACCINE 0.5 ML IMVAC ONE (12:00)
--- NOTE | 2023-04-16 12:15 | EKG ---
Test Date: 2023-04-15 Test Time: 21:04:26 [place] Gatherer: SARITA MEASUREMENT RESULTS: Intervals: Rate: 67 MN: 154 QRSD: 96 QT: 402 QTc: 424 [place]: P: 48 MN: 154 QRS: -35 T: -26 INTERPRETIVE STATEMENTS: Normal sinus rhythm Left axis deviation Inferior infarct, age undetermined Abnormal ECG Compared to ECG 10/19/2020 10:11:23 Left-axis deviation now present Myocardial infarct finding still present Electronically Signed On 04-16-23 12:14:18 CDT by Corky Rutherford
--- NOTE | 2023-04-16 18:36 | P.PN ---
Subjective Date of Service: 04/16/23 Chief Complaint: chest pain No chest pain since admission. Troponin trended negative. Physical Examination - Vital Signs Temperature: 97.6 F Blood Pressure: 110/55 Pulse: 66 Respirations: 14 Pulse Ox (%): 98 - Studies Laboratory Data (last 24 hrs) 04/15/23 04/15/23 04/15/23 21:00 21:00 21:00 WBC 8.10 Hgb 15.5 Hct 43.6 Plt Count 218 PT 10.5 INR 0.95 Sodium 137 Potassium 4.0 BUN 16 Creatinine 1.04 Glucose 114 H Magnesium 2.2 Total Bilirubin 0.4 AST 27 ALT 42 Alkaline Phosphatase 57 Assessment And Plan - Plan Physical Exam General: Alert, In no apparent distress, Oriented x3 HEENT: Normocephalic, PERRLA Neck: Supple, JVD not distended Respiratory: Clear to auscultation bilaterally, Normal air movement Cardiovascular: Normal pulses, Regular rate/rhythm, Normal S1 S2 Gastrointestinal: Normal bowel sounds, Soft and benign Musculoskeletal: No clubbing, No swelling Integumentary: No rashes, No breakdown Neurological: Normal speech, Normal strength at 5/5 x4 extr, Normal tone Diagnosis Chest pain rule out LA Essential hypertension Hyperlipidemia CAD with history of PCI, carotid endarterectomy BPH Plan Patient with significant history of peripheral vascular disease and coronary artery disease. Cardiac cath with stenting 3 years ago. No other follow-up image documented. Cardiology consulted, Troponin trended negative. Patient is currently chest pain-free. Obtain stress test and echocardiogram. Resume home medications for BPH. Full code N.p.o. after midnight
[2023-04-16] MEDS: ENOXAPARIN 40 MG/0.4 ML SQ SCH (20:06)
--- NOTE | 2023-04-16 20:30 | CON ---
Date of Consultation: 04/16/2023 Reason For Consultation: Chest pain. History Of Present Illness: This is a 72-year-old male with history of coronary artery disease, hype rtension, dyslipidemia, status post PCI in the past, presented with chest pain, retrosternal, not rel ated to exertion. No radiation. Has mild shortness of breath as well. Denies any nausea, vomiting, or diaphoresis. Has been chest pain free since was admitted. Cardiac enzymes are negative. Past Medical History: As outlined above in the HPI. Medications: Refer reconciliation sheet for detailed list. Allergies: NO KNOWN DRUG ALLERGIES. Family History: No premature coronary artery disease or cancer. Social History: Does not smoke or drink. Does not use any drugs. Review of Systems: All systems reviewed are negative except for mentioned in HPI. Physical Examination: Vital Signs: Reviewed. Head and Neck: Pupils are equal, reactive to light. Intact eye movements. Neck: No JVD. No cervical lymphadenopathy. Neck supple. Thyroid is not enlarged. Lungs: Clear to auscultation bilaterally. No rhonchi, rales, or crackles. No accessory muscle use. Heart: Regular rate and rhythm. No extra sounds. Abdomen: Soft, nontender. Bowel sounds positive. No organomegaly. No masses or hernia. No rigidi ty or rebound Extremities: No edema, clubbing, cyanosis. Intact pulses. Skin: No rash. Neurologic: Alert, awake, oriented x3. No acute focal deficits appreciated. Investigations: Cardiac enzymes x3 are negative. BUN 14, creatinine 0.99. Hemoglobin is 14. Assessment And Recommendation: 1.Chest pain. It is atypical and cardiac enzymes are negative. The patient is known to have histor y of coronary artery disease. He can be released from Cardiology standpoint and we will plan to get him in for stress test this week as an outpatient. 2.Dyslipidemia. Recommend Lipitor 40 mg q.h.s. 3.Hypertension. Blood pressure is well controlled. From cardiology standpoint, the patient can be released. Follow up with me in the office this week. /SAVITA Voice ID: [id number] Report ID: [id number]
[2023-04-16 20:31] VITALS: O2SAT 98
[2023-04-17 00:56] VITALS: BMI 26.9
[2023-04-17 02:43] LABS: Magnesium 2.3 mg/dL (1.6-2.4)
[2023-04-17 05:38] VITALS: TEMP 97
[2023-04-17] MEDS: ENOXAPARIN 40 MG/0.4 ML SQ SCH (09:00)
[2023-04-17] MEDS ORDERED: REGADENOSON 0.4 MG/5 ML SYR IV ONE (09:00)
--- NOTE | 2023-04-17 10:40 | RAD REPORT ---
EXAM DESCRIPTION: NM - Rest Stress Cardiac Imaging - 04/17/2023 10:21 am CLINICAL HISTORY: Chest pain. COMPARISON: None. TECHNIQUE: The patient was administered 9.8 mCi of Tc 99m Sestamibi prior to resting SPECT imaging o f the heart. The patient was then administered 29.1 mCi of Tc 99m Sestamibi following exercise or pha rmacologic stress. Multiplanar SPECT images were reviewed. FINDINGS: Large area of diminished radiotracer activity involves the inferolateral left ventricular myocardium on rest and stress images Left ventricular ejection fraction 35% IMPRESSION: Large fixed perfusion defect inferolateral left ventricular myocardium likely an infarct No evidence stress-induced ischemia
--- NOTE | 2023-04-17 12:10 | P.DS ---
Admission Date: 04/15/23 Discharge Date: 04/17/23 Reason for Admission: chest pain Consultations: Cardiology - Dr. Rutherford Brief History of Present Illness: 72yo M, PMH: CAD, hypertension with PCI, hyperlipidemia, BPH, Patient presents to the emergency room with substernal chest pain that started today. Reports chest pain is intermittent rated about a 3 out of 10, nonradiating. He reports mild chronic shortness of breath, he denies history of asthma or COPD no reported history of tobacco use. He reports history of CAD with PCI, reports history of right carotid endarterectomy 1 year ago. He denies dizziness, chest pain radiation, diaphoresis, fever nausea vomiting diarrhea, syncope. Plan to admit for chest pain rule out CA with cardiology to consult. BP 143 / 79; Pulse 70; Resp 20; Temp 98.2; Pulse Ox 95% on R/A; Weight 70.31 kg; Height 5 ft. 0 in. ; Pain 8/10; 21:12 Rate is 67 beats/min. Rhythm is regular, Normal Sinus Rhythm. Left axis deviation sb4 noted. MI interval is normal at 154 msec. QRS interval is normal at 96 msec. QT interval is normal at [address] changes noted. Clinical impression: Abnormal EKG without significant change. Laboratory evaluation CBC unremarkable CMP unremarkable BNP 270 troponin normal at 9.8, CT of the chest negative for dissection Hospital Course: Problem List: Chest pain Hypertension Hyperlipidemia CAD with history of PCI, carotid endarterectomy BPH Patient presented with chest pain. Troponins were negative x3. EKG without STEMI criteria. CXR/CT both negative for any acute findings. Cardiology was consulted. Dr. Rutherford recommended nuclear stress test this week. Patient underwent stress testing during this hospitalization, which was negative for any stress induced ischemia. It did note a fixed perfusion defect - in distribution where he had prior CA / LAD stent years ago. No further cardiac workup this hospitalization. Patient was feeling better and chest pain resolved, was deemed stable for discharge home. Continue home medications as previously prescribed. Follow up with Cardiology Follow up: PCP 3-5 days Cardiology in 1-2 weeks Physical Exam: GEN: Alert, oriented, NAD HEENT: Normal conjunctiva, sclera anicteric CV: Regular rate and rhythm, no edema Pulm: Nonlabored respirations on room air ABD: Soft, nontender, nondistended MSK: No joint tenderness Integumentary: No rashes Neuro: Normal speech, normal affect Vital Signs/Physical Exam: Temp Pulse Resp BP Pulse Ox 97.0 F 67 17 122/67 97 04/17/23 04:00 04/17/23 04:00 04/17/23 04:00 04/17/23 04:00 04/17/23 04:00 Laboratory Data at Discharge: WBC 8.20 thou/uL (4.3-10.9) 04/16/23 02:41 Hgb 14.0 g/dL (13.6-17.9) D 04/16/23 02:41 Hct 40.2 % (39.6-49.0) 04/16/23 02:41 Plt Count 186 thou/uL (152-406) 04/16/23 02:41 PT 10.5 SECONDS (9.5-12.5) 04/15/23 21:00 INR 0.95 04/15/23 21:00 Sodium 137 mEq/L (136-145) 04/17/23 02:08 Potassium 4.0 mEq/L (3.5-5.1) 04/17/23 02:08 BUN 16 mg/dL (7-18) 04/17/23 02:08 Creatinine 0.98 mg/dL (0.70-1.30) 04/17/23 02:08 Glucose 98 mg/dL (74-106) 04/17/23 02:08 Magnesium 2.3 mg/dL (1.6-2.4) 04/17/23 02:08 Total Bilirubin 0.4 mg/dL (0.2-1.0) 04/15/23 21:00 AST 27 U/L (15-37) 04/15/23 21:00 ALT 42 U/L (16-61) 04/15/23 21:00 Alkaline Phosphatase 57 U/L (45-117) 04/15/23 21:00 Triglycerides 104 mg/dL (<150) 04/16/23 02:41 Cholesterol 114 mg/dL (<200) 04/16/23 02:41 HDL Cholesterol 42 mg/dL (40-60) 04/16/23 02:41 Cholesterol/HDL Ratio 2.71 04/16/23 02:41 Home Medications: Clopidogrel Bisulfate [Plavix*] 75 mg PO DAILY #30 tablet 02/23/15 Aspirin [Aspirin EC 81 MG] 81 tab PO DAILY 06/24/20 Atorvastatin Calcium 40 mg PO DAILY 06/24/20 Metoprolol Succinate 50 mg PO DAILY 06/24/20 Tamsulosin HCl 0.4 mg PO DAILY 06/24/20 lisinopriL [Lisinopril] 5 mg PO DAILY 06/24/20 Meloxicam 15 mg PO DAILY 04/16/23 Physician Discharge Instructions: Patient presented with chest pain. Troponins were negative x3. EKG without STEMI criteria. CXR/CT both negative for any acute findings. Cardiology was consulted. Dr. Rutherford recommended nuclear stress test which was negative. No further cardiac workup this hospitalization. Patient was feeling better and chest pain resolved, was deemed stable for discharge home. Continue home medications as previously prescribed. Follow up: PCP 3-5 days Cardiology in 1-2 weeks Followup: Jane Delcid DO, DO [Primary Care Provider] - Time spent managing pt's care (in minutes): 45
[2023-04-17] MEDS: ATORVASTATIN 40 MG TAB PO SCH (12:33)
[2023-04-17] MEDS: TAMSULOSIN 0.4 MG SR CAP PO SCH (12:34)
[2023-04-17] MEDS: ASPIRIN EC 81 MG TAB PO SCH (12:34)
[2023-04-17] MEDS: METOPROLOL XL 50 MG TAB PO SCH (12:34)
[2023-04-17 12:35] VITALS: BP 134/64
[2023-04-17] MEDS: CLOPIDOGREL 75 MG TABLET PO SCH (12:35)
--- NOTE | 2023-04-17 14:02 | TREADPHA ---
DX: CHEST PAIN Date of Study: 04/17/2023 Ht: 5' 2 " Wt: 147 lb 8 oz Consulting Physician: LUIS MEDICATIONS: TYLENOL, XANAX, ASPIRIN, LIPITOR, PLAVIX, LOVENOX, TOPROL XL, MORPHINE, ZOFRAN, FLOMAX HISTORY: 72 YEAR OLD MALE WITH COMPLAINTS OF CHEST PAIN. HISTORY OF HYPERTENSION, HYPERLIPIDEMIA, NON SMOKER, NON DRINKER PHYSICIAL EXAMINATION: RESTING B.P.: 139/78 RESTING H.R.: 74 RESTING EKG: NORMAL SINUS RHYTHM WITH T WAVE DEPRESSION IN INFEROLATERAL LEADS PROTOCOL: PHARMACOLOGIC EXERCISE TIME: 3:30 B.P. AT PEAK STRESS: 112/54 IMPRESSION: LEXISCAN INJECTED, FOLLOWED BY CARDIOLITE PER PROTOCOL. NO SUPRAVENTRICULAR TACHYCARDIA, VENTRICULAR TACHYCARDIA, PREMATURE ATRIAL COMPLEXES. OCCASIONAL PREMATURE VENTRICULAR COMPLEXES. PATIENT REPORTS UPPER GASTRIC PAIN, NO CHEST PAIN. NO ELECTROCARDIOGRAM CHANGES WITH LEXISCAN.
--- NOTE | 2023-04-17 15:54 | PN ---
Date of Progress Note: 04/17/2023 Subjective: Seen by bedside. Doing clinically well. Does not have any chest pain. No shortness of breath, orthopnea, or cough. No nausea, vomiting, or diarrhea. All other systems reviewed, they we re negative. Objective: Vital Signs: Reviewed. Head and Neck: Pupils are equal, reactive to light. Intact eye movements. No JVD. No cervical lym phadenopathy. Neck is supple. Thyroid is not enlarged. Lungs: Clear to auscultation bilaterally. No rhonchi, wheezing, or crackles. No accessory muscle u se. Heart: Regular rate and rhythm. No extra sounds. Abdomen: Soft, nontender. Bowel sounds positive. No organomegaly. No masses or hernia. No rigidi ty or rebound Extremities: No edema, clubbing, cyanosis. Intact pulses. Skin: No rash. No nodule. Neurologic: Alert, awake, oriented x3. No acute focal deficits appreciated. Investigations: BUN 16, creatinine 0.98, and troponins are negative. Hemoglobin is 14. Assessment And Recommendations: 1.Chest pain, atypical. Stress test was negative. Patient can be released from cardiology standpoi nt and follow up as an outpatient. 2.Hypertension. Blood pressure is controlled. 3.Dyslipidemia. Continue statin. Cardiology will sign off. SR/MODL Voice ID: [id number] Report ID: [id number]
== END 2023-04-17 14:02 | disposition home or self-care (01) ==
LOC: ER 20:49 → ERHOLD 22:17 → 2ND 23:13
PROVIDERS: ADMIT Internal Medicine; ATTEND Hospitalist
DX: R07.89 Other chest pain (principal); I25.10 Atherosclerotic heart disease of native coronary artery without angina pectoris; I10 Essential (primary) hypertension; E78.5 Hyperlipidemia, unspecified; N40.0 Benign prostatic hyperplasia without lower urinary tract symptoms; R06.02 Shortness of breath
CPT/HCPCS: 93005; 93017; 85025 ×2; 80048 ×3; 36415 ×2; 83735 ×3; 85610; 80061; 82947 ×2; 80076; 84484 ×4; 83880; 71275; 74175; 71045; 78452; 99285; Q9967; J2785; J1650; A9500; G0378

== ENCOUNTER 2023-10-13 17:04 | Emergency (ER) | payer OTHER ==
--- NOTE | 2023-10-13 18:17 | RAD REPORT ---
EXAM DESCRIPTION: RAD - Chest Pa And Lat (2 Views) - 10/13/2023 6:06 pm CLINICAL HISTORY: CONGESTION COMPARISON: Chest Single View dated 04/15/2023; Chest Pa And Lat (2 Views) dated 06/23/2020; Chest Si ngle View dated 08/01/2019; CHEST SINGLE VIEW dated 02/18/2015 FINDINGS: Lines: None. Lungs: No evidence of edema or pneumonia. Pleural: No significant pleural effusions or pneumothorax. Cardiac: The heart size is within normal limits. Mediastinum: Within normal limits. Bones: No acute fractures. Other: None IMPRESSION: No acute cardiopulmonary disease.
[2023-10-13] MEDS ORDERED: KETOROLAC 30 MG/ML INJ ONE (18:23)
[2023-10-13] MEDS ORDERED: METOCLOPRAMIDE 10 MG/2mL INJ ONE (18:24)
[2023-10-13 18:57] LABS: Absolute Eosinophils 0.3 K/uL (0-0.5); Absolute Lymphocytes (CBC) 0.9 K/uL (0.7-4.9); Absolute Monocytes 1.2 K/uL (0.1-1.3); Absolute Neutrophil 6.9 K/uL (1.8-8.0); Basophils % 0.5 % (0-1.3); Hemoglobin 13.5 g/dL (13.6-17.9); Lymphocytes % 9.7 % (15.3-44.8); MCH 31.9 pg (27.0-35.0); MCHC 34.6 g/dL (32.0-36.0); MCV 92.2 fL (80-100); MPV 7.3 fL (7.6-11.3); Neutrophils % 73.8 % (41.7-73.7); Nucleated Red Blood Cells % 0.1 % (0-0); Platelets 305 thou/uL (152-406); RBC Red Blood Cell Count 4.23 M/uL (4.33-5.43); Red Cell Distribution Width 12.8 % (12.1-15.2)
[2023-10-13 19:10] LABS: SARS-CoV-2 Antigen CONTROL BLUE LINE VIS/BG OK; SARS-CoV-2 Antigen Rapid Res Negative (Negative)
[2023-10-13 19:14] LABS: Albumin 3.2 g/dL (3.4-5.0); Albumin/Globulin Ratio 0.8 (1.1-1.8); Bilirubin Total 0.6 mg/dL (0.2-1.0); Globulin 4.1 g/dL (2.3-3.5); Protein, Total 7.3 g/dL (6.4-8.2)
[2023-10-13] MEDS ORDERED: AZITHROMYCIN 250 MG TAB ONE (19:28)
[2023-10-13] MEDS ORDERED: FAMOTIDINE 20 MG/2 ML VIAL IV ONE (19:29)
--- NOTE | 2023-10-13 19:36 | ER ---
Nurse's Notes [facility] Name: Santiago Odonnell Age: 73 yrs Sex: Male : 1950 Arrival Date: 10/13/2023 Time: 17:04 Bed 19 Private MD: Diagnosis: Acute upper respiratory infection, unspecified;Fever, unspecified Presentation: 10/12 17:13 Chief complaint: Patient states: Headache and body aches for a week. Coronavirus nj1 screen: Vaccine status: Patient reports being unvaccinated. Ebola Screen: Patient denies travel to an Ebola-affected area in the 21 days before illness onset. Initial Sepsis Screen: Does the patient meet any 2 criteria? HR > 90 bpm. No. Patient's initial sepsis screen is negative. Does the patient have a suspected source of infection? No. Patient's initial sepsis screen is negative. Risk Assessment: Do you want to hurt yourself or someone else? Patient reports no desire to harm self or others. Onset of symptoms was October 2023. 17:13 Method Of Arrival: Ambulatory [facility] 17:13 Acuity: WALTER 3 nj1 Historical: - Allergies: 17:15 No Known Allergies; nj1 - PMHx: 17:15 ND; Hypertensive disorder; Hypercholesterolemia; nj1 - PSHx: 17:15 Stented artery; nj1 - Immunization history:: Client reports having NOT received the Covid vaccine. - Infectious Disease History:: Denies. - Social history:: Smoking status: Patient denies any tobacco usage or history of. - Family history:: not pertinent. Screenin:49 [facility] ED Fall Risk Assessment (Adult) History of falling in the last 3 months, ph including since admission No falls in past 3 months (0 pts) Confusion or Disorientation No (0 pts) Intoxicated or Sedated No (0 pts) Impaired Gait No (0 pts) Mobility Assist Device Used No (0 pt) Altered Elimination No (0 pt) Score/Fall Risk Level 0 - 2 = Low Risk Oriented to surroundings, Maintained a safe environment, Hourly rounding (assess needs \T\ fall precautionary measures) done. Abuse screen: Denies threats or abuse. Denies injuries from another. Nutritional screening: No deficits noted. Tuberculosis screening: No symptoms or risk factors identified. Assessment: 18:45 General: Appears in no apparent distress. comfortable, well groomed, Behavior is calm, ph cooperative, appropriate for age. Pain: Complains of pain in headache, body aches. Neuro: Level of Consciousness is awake, alert, obeys commands, Oriented to person, place, time, situation. Cardiovascular: Capillary refill < 3 seconds in bilateral fingers Patient's skin is warm and dry. Respiratory: Airway is patent Respiratory effort is even, unlabored, Respiratory pattern is regular, symmetrical. GI: No signs and/or symptoms were reported involving the gastrointestinal system. Derm: Skin is pink, warm \T\ dry. Vital Signs: 17:13 BP 128 / 78; Pulse 97; Resp 16; Temp 98(TE); Pulse Ox 100% ; Weight 68.04 kg; Height 5 nj1 ft. 2 in. ; Pain 8/10; 18:48 BP 132 / 78; Pulse 92; Resp 18; Pulse Ox 99% on R/A; ph 17:13 Body Mass Index 27.44 (68.04 kg, 157.48 cm) nj1 17:13 Pain Scale: Adult [facility] ED Course: 17:08 Patient arrived in ED. ra3 17:15 Triage completed. nj1 17:16 Arm band placed on right wrist. nj1 17:18 Isamar Leon, RN is Primary Nurse. ph 17:25 Sharan Gonzalez MD is Attending Physician. regi 18:08 Chest Pa And Lat (2 Views) XRAY In Process Unspecified. EDMS 18:45 CBC with Diff Sent. ph 18:45 Comprehensive Metabolic Panel Sent. ph 18:45 SARS RAPID Sent. ph 18:45 Flu Sent. ph 18:49 Initial lab(s) drawn, by mn, sent to lab. Inserted saline lock: 22 gauge in right ph antecubital area, using aseptic technique. Blood collected. 18:50 Patient has correct armband on for positive identification. Bed in low position. Call light in reach. Side rails up X 1. Pulse ox on. NIBP on. 19:52 Provided Education on: d/c teaching. km8 19:52 No provider procedures requiring assistance completed. IV discontinued, intact, km8 bleeding controlled, No redness/swelling at site. Pressure dressing applied. Administered Medications: 18:44 Drug: NS 0.9% IV 1000 ml IV at 1 bolus Per protocol; 1000 mL bolus Route: IV; Rate: 1 ph bolus; Site: right antecubital; 19:37 Follow up: IV Status: Completed infusion; IV Intake: 1000ml [facility] 18:44 Drug: metoCLOPramide IVP 10 mg IVP once; over 1 to 2 minutes Route: IVP; Site: right ph antecubital; 19:36 Follow up: Response: No adverse reaction 8 18:45 Drug: Ketorolac IVP 15 mg IVP once Route: IVP; Site: right antecubital; ph 19:36 Follow up: Response: No adverse reaction 8 19:36 Drug: AZITHromycin PO 500 mg PO once Route: PO; km8 19:52 Follow up: Response: No adverse reaction [facility] 19:36 Drug: Famotidine IVP 20 mg IVP once; dilute with 10 mL 0.9% NaCl; give over 2 minutes km8 Route: IVP; Site: right antecubital; 19:52 Follow up: Response: No adverse reaction [facility] 19:39 CANCELLED (Duplicate Order): levalbuterol1.25 mg Inhalation once [facility] 19:39 CANCELLED (Duplicate Order): ipratropiumaerosol 0.5 mg Inhalation once [facility] Medication: 18:49 VIS not applicable for this client. ph Intake: 19:37 IV: 1000ml; Total: 1000ml. 8 Outcome: 19:35 Discharge ordered by . [facility] 19:51 Patient left the ED. 8 19:52 Discharged to home ambulatory, 8 19:52 Condition: good 19:52 Discharge instructions given to patient, Instructed on discharge instructions, follow up and referral plans. medication usage, Demonstrated understanding of instructions, follow-up care, medications, Prescriptions given X 3, Signatures: Dispatcher [employer] EDMS Sharan Gonzalez MD MD cha Hall, Patricia, RN RN ph Christina Bravo, RN RN nj1 Jeannie Walker RN RN 8 Dorothea Fraire ra3 Corrections: (The following items were deleted from the chart) 18:06 17:13 Acuity: WALTER 4 nj1 nj1 19:53 19:52 Discharge instructions given to patient, Instructed on discharge instructions, km8 follow up and referral plans. medication usage, Demonstrated understanding of instructions, follow-up care, medications, Prescriptions given X 2, km8
--- NOTE | 2023-10-13 19:36 | EDPHYS ---
Physician Documentation [facility] Name: Santiago Odonnell Age: 73 yrs Sex: Male : 1950 Arrival Date: 10/13/2023 Time: 17:04 Bed 19 Private MD: ED Physician Sharan Gonzalez HPI: 10/12 19:10 This 73 yrs old Male presents to ER via Ambulatory with complaints of symptoms regi URI, FEVER. 19:10 FEVER , URI , COUGH, BODY ACHES. Onset: The symptoms/episode began/occurred 3 day(s) regi ago. The patient reports fever, that was measured at 100 degrees Fahrenheit. Modifying factors: there are no obvious modifying factors. Associated signs and symptoms: Pertinent positives: cough, myalgias, runny nose, sinus congestion. Severity of symptoms: At their worst the symptoms were mild moderate in the emergency department the symptoms are unchanged. The patient has experienced similar episodes in the past, a few times. Historical: - Allergies: 17:15 No Known Allergies; nj1 - PMHx: 17:15 MT; Hypertensive disorder; Hypercholesterolemia; nj1 - PSHx: 17:15 Stented artery; nj1 - Immunization history:: Client reports having NOT received the Covid vaccine. - Infectious Disease History:: Denies. - Social history:: Smoking status: Patient denies any tobacco usage or history of. - Family history:: not pertinent. ROS: 19:10 Constitutional: Negative for fever, chills, and weight loss, Eyes: Negative for injury, regi pain, redness, and discharge, ENT: Negative for injury, pain, and discharge, Neck: Negative for injury, pain, and swelling, Cardiovascular: Negative for chest pain, palpitations, and edema, Abdomen/GI: Negative for abdominal pain, nausea, vomiting, diarrhea, and constipation, Back: Negative for injury and pain, : Negative for injury, bleeding, discharge, and swelling, MS/Extremity: Negative for injury and deformity, Skin: Negative for injury, rash, and discoloration, Neuro: Negative for headache, weakness, numbness, tingling, and seizure, Psych: Negative for depression, anxiety, suicide ideation, homicidal ideation, and hallucinations, Allergy/Immunology: Negative for hives, rash, and allergies, Endocrine: Negative for neck swelling, polydipsia, polyuria, polyphagia, and marked weight changes, Hematologic/Lymphatic: Negative for swollen nodes, abnormal bleeding, and unusual bruising, 19:10 Respiratory: Positive for cough, "sounds productive", Exam: 19:10 Constitutional: This is a well developed, well nourished patient who is awake, alert, regi and in no acute distress. Head/Face: Normocephalic, atraumatic. Eyes: Pupils equal round and reactive to light, extra-ocular motions intact. Lids and lashes normal. Conjunctiva and sclera are non-icteric and not injected. Cornea within normal limits. Periorbital areas with no swelling, redness, or edema. ENT: Nares patent. No nasal discharge, no septal abnormalities noted. Tympanic membranes are normal and external auditory canals are clear. Oropharynx with no redness, swelling, or masses, exudates, or evidence of obstruction, uvula midline. Mucous membranes moist. Neck: Trachea midline, no thyromegaly or masses palpated, and no cervical lymphadenopathy. Supple, full range of motion without nuchal rigidity, or vertebral point tenderness. No Meningismus. Chest/axilla: Normal chest wall appearance and motion. Nontender with no deformity. No lesions are appreciated. Cardiovascular: Regular rate and rhythm with a normal S1 and S2. No gallops, murmurs, or rubs. Normal PMI, no JVD. No pulse deficits. Abdomen/GI: Soft, non-tender, with normal bowel sounds. No distension or tympany. No guarding or rebound. No evidence of tenderness throughout. Back: No spinal tenderness. No costovertebral tenderness. Full range of motion. Male : Normal genitalia with no discharge or lesions. Skin: Warm, dry with normal turgor. Normal color with no rashes, no lesions, and no evidence of cellulitis. MS/ Extremity: Pulses equal, no cyanosis. Neurovascular intact. Full, normal range of motion. Neuro: Awake and alert, GCS 15, oriented to person, place, time, and situation. Cranial nerves II-XII grossly intact. Motor strength 5/5 in all extremities. Sensory grossly intact. Cerebellar exam normal. Normal gait. Psych: Awake, alert, with orientation to person, place and time. Behavior, mood, and affect are within normal limits. 19:10 Respiratory: the patient does not display signs of respiratory distress, Respirations: normal, Breath sounds: are clear throughout, Respiratory rate: 18 Vital Signs: 17:13 BP 128 / 78; Pulse 97; Resp 16; Temp 98(TE); Pulse Ox 100% ; Weight 68.04 kg; Height 5 nj1 ft. 2 in. ; Pain 8/10; 18:48 BP 132 / 78; Pulse 92; Resp 18; Pulse Ox 99% on R/A; ph 17:13 Body Mass Index 27.44 (68.04 kg, 157.48 cm) [facility] 17:13 Pain Scale: Adult [facility] MDM: 17:25 Patient medically screened. [facility] 19:15 Differential diagnosis: viral Infection, bacterial infection, URI, bronchitis. [facility] Differential Diagnosis sepsis, flu. Data reviewed: vital signs, nurses notes, lab test result(s), radiologic studies, plain films. Consideration of Admission/Observation Escalation of care including admission/observation considered. I considered the following discharge prescriptions or medication management in the emergency department Medications were administered in the Emergency Department. See MAR. Independent interpretation of the following test(s) in the Emergency Department X-Ray: My interpretation is CXR NEG. Test considered but Not performed: EKG: NO EKG. Care significantly affected by the following chronic conditions: Hypertension. 10/12 17:28 Order name: CBC with Diff; Complete Time: 19:21 [facility] 10/12 17:28 Order name: Comprehensive Metabolic Panel; Complete Time: 19:21 [facility] 10/12 17:28 Order name: SARS RAPID; Complete Time: 19:21 [facility] 10/12 17:28 Order name: Flu; Complete Time: 19:35 [facility] 10/12 19:37 Order name: Ferritin [facility] 10/12 19:37 Order name: B12 [facility] 10/12 19:37 Order name: Retic Count [facility] 10/12 19:37 Order name: TIBC [facility] 10/12 17:28 Order name: Chest Pa And Lat (2 Views) XRAY; Complete Time: 18:20 [facility] Administered Medications: 18:44 Drug: NS 0.9% IV 1000 ml IV at 1 bolus Per protocol; 1000 mL bolus Route: IV; Rate: 1 ph bolus; Site: right antecubital; 19:37 Follow up: IV Status: Completed infusion; IV Intake: 1000ml km8 18:44 Drug: metoCLOPramide IVP 10 mg IVP once; over 1 to 2 minutes Route: IVP; Site: right ph antecubital; 19:36 Follow up: Response: No adverse reaction km8 18:45 Drug: Ketorolac IVP 15 mg IVP once Route: IVP; Site: right antecubital; ph 19:36 Follow up: Response: No adverse reaction km8 19:36 Drug: AZITHromycin PO 500 mg PO once Route: PO; km8 19:52 Follow up: Response: No adverse reaction 8 19:36 Drug: Famotidine IVP 20 mg IVP once; dilute with 10 mL 0.9% NaCl; give over 2 minutes km8 Route: IVP; Site: right antecubital; 19:52 Follow up: Response: No adverse reaction [facility] 19:39 CANCELLED (Duplicate Order): levalbuterol1.25 mg Inhalation once [facility] 19:39 CANCELLED (Duplicate Order): ipratropiumaerosol 0.5 mg Inhalation once [facility] Disposition Summary: 10/13/23 19:35 Discharge Ordered Notes: Location: Home [facility] Problem: new [facility] Symptoms: have improved [facility] Condition: Stable [facility] Diagnosis - Acute upper respiratory infection, unspecified regi - Fever, unspecified regi Followup: [facility] - With: Private Physician - When: 2 - 3 days - Reason: Recheck today's complaints, Continuance of care, Re-evaluation by your physician Discharge Instructions: - Discharge Summary Sheet [facility] - Fever, Adult regi - Cool Mist Vaporizer [facility] - Upper Respiratory Infection, Adult, [id number] [facility] - Cough, Adult [facility] Forms: - Medication Reconciliation Form [facility] - Thank You Letter [facility] - Antibiotic Education [facility] - Prescription Opioid Use [facility] - Patient Portal Instructions [facility] - Leadership Thank You Letter [facility] Prescriptions: - Tessalon Perles 100 mg Oral capsule - take 2 capsule ORAL route every 8 hours As needed; 30 capsule; Refills: 0, regi Product Selection Permitted - Medrol (Joel) 4 mg Oral Tablets, Dose Pack - take 1 tablet ORAL route as directed - follow package instructions; 1 packet; [facility] Refills: 0, Product Selection Permitted - Zithromax 500 mg Oral tablet - take 1 tablet ORAL route once daily for 5 days; 5 tablet; Refills: 0, Product [facility] Selection Permitted Signatures: Dispatcher [employer] Sharan Warren MD MD cha Hall, Patricia, RN RN Christina Bravo RN RN nj1 Jeannie Walker RN RN km8 Corrections: (The following items were deleted from the chart) 19:37 19:37 FERRITIN+C.LAB.BRZ ordered. EDMS EDMS 19:37 19:37 VITAMIN B12+C.LAB.BRZ ordered. EDMS EDMS 19:37 19:37 RETIC COUNT+H.LAB.BRZ ordered. EDMS EDMS 19:37 19:37 FERRITIN+C.LAB.BRZ ordered. EDMS EDMS 19:37 19:37 TRANSFERRIN SAT/IRON BINDING+C.LAB.BRZ ordered. EDMS EDMS 19:39 19:36 Levalbuterol Inhalation 1.25 mg Inhalation once ordered. regi regi 19:39 19:36 Ipratropium Inhalation Aerosol 0.5 mg Inhalation once ordered. regi deluna
[2023-10-13 22:01] LABS: Percent Reticulocyte Count 0.73 % (0.4-2.05); RBC Red Blood Cell Count 4.26 M/uL (4.33-5.43)
[2023-10-13 22:31] LABS: Ferritin 92.2 ng/mL (26-388)
[2023-10-14 02:40] VITALS: BP 132/78; TEMP 98; O2SAT 99
== END 2023-10-13 19:51 | disposition home or self-care (01) ==
LOC: ER 17:04
DX: J06.9 Acute upper respiratory infection, unspecified (principal); Z11.52 Encounter for screening for COVID-19; I10 Essential (primary) hypertension; I25.2 Old myocardial infarction
CPT/HCPCS: 96361; 85025; 36415; 85044; 82728; 82607; 83540; 80053; 84466; 87804 ×2; 71046; 96375; 96374; 99284; 87811; J2765

== ENCOUNTER 2024-04-09 11:14 | Day surgery (SDC) | payer OTHER ==
[2024-04-08 09:15] LABS: Absolute Basophils 0.1 K/uL (0-0.5); Absolute Eosinophils 0.2 K/uL (0-0.5); Absolute Lymphocytes (CBC) 2.1 K/uL (0.7-4.9); Absolute Monocytes 0.6 K/uL (0.1-1.3); Absolute Neutrophil 3.3 K/uL (1.8-8.0); Basophils % 1.1 % (0-1.3); Eosinophils % 3.6 % (0-4.4); Hemoglobin 13.7 g/dL (13.6-17.9); MCH 32.2 pg (27.0-35.0); MCHC 34.1 g/dL (32.0-36.0); MCV 94.4 fL (80-100); MPV 7.9 fL (7.6-11.3); Neutrophils % 52.3 % (41.7-73.7); Platelets 207 thou/uL (152-406); RBC Red Blood Cell Count 4.24 M/uL (4.33-5.43); Red Cell Distribution Width 13.2 % (12.1-15.2)
[2024-04-08 09:25] LABS: PT Prothrombin Time 10.5 SECONDS (9.4-12.5); PTT, Activated Partial Thromb 32.2 SECONDS (24.3-36.9); Protime INR 0.94
--- NOTE | 2024-04-08 10:15 | RAD REPORT ---
EXAMINATION: ONE VIEW CHEST XR CLINICAL INDICATION: PRE-OP TECHNIQUE: Frontal chest projection is submitted. Examination is limited by patient positioning and t echnique. COMPARISON: 10/13/2023 FINDINGS: The lungs are well inflated and clear. The heart is upper limit of normal in size. No displaced fract ures identified. IMPRESSION: No acute intrathoracic abnormalities.
[~2024-04-09 11:14] MED LIST: NA CHLORIDE 0.9% 500 ML ONE
[2024-04-09] MEDS ORDERED: FENTANYL CITR 100 MCG/2 ML ONE (11:29)
[2024-04-09] MEDS ORDERED: MIDAZOLAM HCL 2 MG/2 ML INJ ONE (11:30)
[2024-04-09] MEDS ORDERED: HEPA 1000U/500MLS 0 UNIT/0 ML BAG IV ONE (11:46)
[2024-04-09] MEDS ORDERED: ASPIRIN 325 MG TAB ONE (11:47)
[2024-04-09] MEDS ORDERED: HEPARIN 5000 UNIT/ML 1 ML VIAL ONE (11:47)
[2024-04-09] MEDS ORDERED: TICAGRELOR 90 MG TABLET PO ONE (11:47)
[2024-04-09] MEDS ORDERED: LIDOCAINE 1% 20 ML MDV ONE (11:47)
[2024-04-09] MEDS ORDERED: HEPARIN 10,000 UNIT/10 ML VIAL IV ONE (11:47)
[2024-04-09] MEDS ORDERED: ATROPINE SULF 1 MG/10 ML SYR IV ONE (11:47)
[2024-04-09] MEDS ORDERED: CLOPIDOGREL 75 MG TABLET ONE (11:47)
[2024-04-09] MEDS ORDERED: VERAPAMIL HCL 10 MG/4 ML VIAL IV ONE (11:47)
--- NOTE | 2024-04-09 12:59 | EKG ---
Test Date: 2024-04-08 Test Time: 09:44:23 Health Information Coder: GOPI MEASUREMENT RESULTS: Intervals: Rate: 57 AK: 168 QRSD: 96 QT: 430 QTc: 418 [place]: P: 63 AK: 168 QRS: -22 T: -26 INTERPRETIVE STATEMENTS: Sinus bradycardia Inferior infarct, age undetermined Abnormal ECG Compared to ECG 04/15/2023 21:04:26 Sinus rhythm no longer present Left-axis deviation no longer present Myocardial infarct finding still present Electronically Signed On 04-09-24 12:55:02 CDT by Simon Nichols
[2024-04-09 15:59] VITALS: BP 131/66; O2SAT 98
--- NOTE | 2024-04-09 23:42 | OP ---
Date of Procedure: 04/09/2024 Surgeon: DINAH SMITH Procedure Performed: Selective bilateral carotid angiogram. Indication: Carotid stenosis by Doppler. Access: Right common femoral artery, 5-American, closed with 5-American Mynx closure device. Complications: None. Bleeding: Less than 50 mL. Total Sedation Time: 45 minutes, used fentanyl and Versed. Description Of Procedure: After risks, benefits, alternatives were explained, the patient agreed to procedure and signed informed consent. The patient was brought into cardiac catheterization laborato , prepped and draped in usual sterile fashion. Then, I accessed right common femoral artery using micropuncture kit, ultrasound guidance, fluoroscopy. Placed 5-American [employer] sheath and then took a 4-American 3DRC catheter into the aortic root, engaged the right coronary artery and then left coronar y artery, took standard views and the catheter was removed. Sheath was removed and used 5-American Myn x closure device for closure with good hemostasis. Findings: 1.Right common carotid is normal, right internal carotid with mild 10% to 20% stenosis, and external carotid is normal. 2.Left common carotid is normal, left internal carotid has about 50% to 60% stenosis, and external c arotid is normal. Conclusion: Moderate carotid stenosis. Recommendation: Medical management. SR/MODL Voice ID: [id number] Report ID: [id number]
== END 2024-04-09 16:00 | disposition home or self-care (01) ==
LOC: CCL 11:14
PROVIDERS: ATTEND Internal Medicine
DX: I65.23 Occlusion and stenosis of bilateral carotid arteries (principal); I25.10 Atherosclerotic heart disease of native coronary artery without angina pectoris; I34.0 Nonrheumatic mitral (valve) insufficiency; I10 Essential (primary) hypertension; E78.2 Mixed hyperlipidemia; Z79.82 Long term (current) use of aspirin; Z79.899 Other long term (current) drug therapy
CPT/HCPCS: 93005; 85025; 80048; 36415; 85610; 85730; 71045; 36222; 76937; C1893; J1644; J2001; J2250; J3010; J7040; 99152; 99153; J0461